=== PATIENT | male | born 1960 | race Caucasian/White ===

== ENCOUNTER 2019-05-29 20:39 | Observation (INO) | payer OTHER, SELFPAY ==
[2019-05-29 20:40] VITALS: BP 153/87; PULSE 134; RESP 18; TEMP 36.7; O2SAT 98; BMI 31.0
--- NOTE | 2019-05-29 20:58 | EKG12_ITS ---
Test Reason : CP Blood Pressure : / mmHG Vent. Rate : 113 BPM Atrial Rate : 113 BPM P-R Int : 134 ms QRS Dur : 144 ms QT Int : 346 ms P-R-T Axes : 038 087 -04 degrees QTc Int : 474 ms Sinus tachycardia Right bundle branch block Possible Inferior infarct , age undetermined Abnormal ECG Confirmed by SYDNEY THRASHER, PHIL ([id number]), business editor BI CAPELLAN ([id number]) on 05/31/2019 12:26:23 PM Referred By: Aurelio Odell Confirmed By:PHIL GRIMES MD
--- NOTE | 2019-05-29 21:00 | RAD_ITS ---
STUDY: X-RAY CHEST REASON FOR EXAM: Male, 59 years old. Chest pain TECHNIQUE: Frontal view COMPARISON: None. FINDINGS: The lungs are clear and expanded. There is no demonstrated pleural abnormality. Normal size heart. Normal mediastinum and mita. Normal visualized pulmonary arteries. Normal visualized aortic arch and descending thoracic aorta. Normal visualized thoracic spine. Normal visualized ribs, clavicles, and shoulders. There is no demonstrated abnormality of the visualized soft tissue structures of the upper abdomen. RAD/Chest 1 View (Portable) IMPRESSION: Normal x-ray examination of the chest. Electronically Signed: Tyler Otoole DO at 21:13 EDT Tel [phone], Service support ,
--- NOTE | 2019-05-29 21:01 | ED.RN ---
NO OLD EKGS IN MUSE
[2019-05-29 21:02] VITALS: O2SAT 99
[2019-05-29] MEDS: Aspirin 81 MG TAB.CHEW 324 MG PO (21:10)
[2019-05-29] MEDS: 0.9% Normal Saline 1,000 ML 1000 ML IV (21:11)
[2019-05-29] MEDS: Morphine 4 MG/ML Syringe IV (21:11)
[2019-05-29 21:34] LABS: Absolute Lymphocyte Count 1.36 X10^3/uL (0.83-4.51); Basophil# 0.03 X10^3/uL; Basophil% 0.4 % (0-1); Eosinophil# 0.09 X10^3/uL; Eosinophils% 1.2 % (0-5); Hematocrit 45.2 % (40-54); Hemoglobin 15.3 g/dL (13.0-16.5); Lymphocyte # 1.36 X10^3/ul (4.0); Lymphocyte % 18.6 % (19-41); Mean Corp Hgb Conc 33.8 g/dL (32-36); Mean Corpuscular Hgb 30.8 pg (27.0-32.0); Mean Corpuscular Volume 90.9 fL (80-94); Monocyte# 0.78 X10^3/uL; Monocyte% 10.7 % (0-10); NRBC Flagged by Analyzer 0 % (0-5); Neutrophil # 5.03 X10^3/uL (2.7-7.7); Neutrophil % 68.7 % (47-70); Platelet Count 223 K/mm3 (150-450); RBC Distribution Width SD 39.8 fl (35.1-43.9); Red Blood Count 4.97 M/mm3 (4.6-6.2); White Blood Count 7.3 K/mm3 (4.4-11.0)
[2019-05-29 21:41] LABS: D-Dimer Quantitative (DVT/PE) 0.35 FEU/ug/m (0.27-0.49)
[2019-05-29 21:44] LABS: Anion Gap 10 (5-15); BUN 15 mg/dL (7-18); BUN/Creat Ratio 9.3 RATIO (10-20); Calcium,Total 9.6 mg/dL (8.5-10.1); Chloride 107 mmol/L (98-107); Creatinine, Serum 1.62 mg/dL (0.70-1.30); EST Glomerular Filtration Rate 47 mL/min (>60); Est Glom Filt Rate - Afr Amer 56 mL/min (>60); Glucose 135 mg/dL (74-106); Potassium 3.7 mmol/L (3.5-5.1); Sodium Level 141 mmol/L (136-145)
--- NOTE | 2019-05-29 21:56 | ED.VISSUMM ---
- ER Visit Summary Date of Service: 05/29/19 Chief Complaint: Chest pain History of Present Illness: The patient is a 59 M with chest pain. He had pain yesterday in his retrosternal area and it radiates to the left chest. It resolved and then recurred again today around 7 PM. It is severe at times. It feels sharp. He never had this before. Associated with shortness of breath and headache. He has a history of hypertension and hyperlipidemia. Physical Examination: Afebrile and vital signs unremarkable except for heart rate of 134. He appears uncomfortable. Heart is tachycardic but regular. Lungs are clear. Abdomen soft. Extremities nontender with no edema. Skin is normal in color. Alert and oriented. Test Results: EKG showed sinus rhythm at a rate of 113. Right bundle branch block pattern. CBC normal. BMP unremarkable. Troponin normal. D-dimer normal. Chest x-ray normal. Emergency Department Course and Treatment: Patient was treated with aspirin and morphine. He was placed on the monitor. EKG showed right bundle with no acute ischemia or infarction pattern. Troponin was normal. Chest x-ray unremarkable. D-dimer negative. He is low risk, so I have no further suspicion for PE. Dissection very unlikely as well. Heart score is a 4. No history of cardiac testing. I am recommending observation. I spoke with the hospitalist. Treatment Plan: As above Disposition: PCU observation Impression: 1. Chest pain This note was generated with [employer] dictation software. It may contain incorrect words, spelling, and punctuation that were not noted in review of the chart prior to signing ED Disposition - Plan for ED Patient: Referrals: Markos Brito MD [Primary Care Provider] -
[2019-05-29 21:58] VITALS: BP 131/92; PULSE 86; RESP 20; O2SAT 99
--- NOTE | 2019-05-29 22:42 | PCM.HP.STD ---
Problem List (1) Chest pain Status: Acute History of Present Illness Date of Admission: 05/29/19 Chief Complaint: chest pain The patient is a 59 year old M with a significant history of former smoker; hypertension; hyperlipidemia who presented to emergency department with episodic lower substernal chest pain that radiates to his left chest. His symptoms started a day before presentation while at rest. 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 His pain is episodic lasting about 30 to 40 seconds. Associated with his symptoms is headache and shortness of breath. He denies any aggravating or ameliorating factors. At the emergency department he was given morphine that he thinks did not help the pain. He denies any nausea; vomiting or diaphoresis. Of note his father had a CABG. His father from heart attack when his father was 59 years old. Also his mother had quadruple bypass at around 72. Past Medical History Medical History: Medical History (Last Reviewed 05/29/19 @ 23:39 by Aurelio Odell MD) HLD (hyperlipidemia) E78.5 HTN (hypertension) I10 Allergies No Known Allergies Allergy (Verified 05/29/19 20:41) Home Medications: Ambulatory Orders Medication Instructions Recorded Simvastatin 20 mg PO QHS 04/23/16 Amlodipine [Norvasc] 10 mg PO DAILY 05/29/19 Surgical History: - - Shoulder surgery; neck surgery and ankle surgery Lives: Spouse/ Significant Other Smoking Status: Former smoker Alcohol: Occasional - *Family History Maternal History Items: Heart Disease - His mother had a quadruple bypass around age 72. Paternal History Items: Heart Disease - His father had CABG. His father from heart attack at age 59. Review of Systems Constitutional: Denies: Chills, Fever, Weight Change HEENT: Reports: Head Aches. Denies: Sinus Congestion, Sinus Drainage Cardiovascular: Reports: Chest Pain. Denies: Palpitations Respiratory: Reports: Shortness of Breath, Shortness of breath at rest, Shortness of breath upon exertion. Denies: Cough, Sputum production Gastrointestinal: Denies: Abdominal Pain, Nausea, Vomiting Genitourinary: Denies: Dysuria Musculoskeletal: Denies: Joint Pain, Joint Tenderness Skin: Denies: Rash, Wounds Neurological: Denies: Numbness, Tingling, Focal weakness Psychiatric: Denies: Anxiety, Depression, Homicidal Ideations, Suicidal Ideations Hematologic/ Lymphatic: Denies: Easy Bruising, Easy Bleeding VTE Information - Inpt Only VTE Present on Admission: No VTE Mechan Device Prophylaxis: None VTE Pharm Prophylaxis ordered?: No Reason prophylaxis not ordered:: Treatment Not Indicated - Patient was given therapeutic dose of Lovenox for probable unstable angina Patient Problems: Active and Suspected Problems (Last Updated 05/29/19 @ 23:30 by Aurelio Odell MD) Chest pain (Acute) - Physical Exam General: Alert, Oriented x3, Cooperative HEENT: Atraumatic, PERRLA, EOMI, Normocephalic Neck: Supple, No JVD, Negative Carotid Bruits, No Nuchal Rigidity, Trachea Midline Lungs: Clear to auscultation, Normal air movement, No rhonchi, No wheeze, No rales, Short of Breath Cardiovascular: Regular rate, No murmurs Abdomen: Bowel Sounds Present, Soft, Non Tender Extremities: No edema, Capillary Refill Less than 3 Seconds Skin: No rashes, No breakdown Musculoskeletal: No Tenderness to Palpation of Joints or Extremities Neurological: Cranial nerves II-XII grossly intact Psych/Mental Status: Normal Affect, Appropriate Vital Signs Temp Pulse Resp BP Pulse Ox 98.0 F 86 20 H 131/92 H 99 05/29/19 20:40 05/29/19 21:58 05/29/19 21:58 05/29/19 21:58 05/29/19 21:58 Oxygen Flow Rate (L/min) 2 Oxygen Delivery Method Room Air Weight: 95.254 kg Body Mass Index (BMI) 31.0 Laboratory Tests Past 24 Hrs 05/29/19 05/29/19 05/29/19 20:50 20:50 20:50 WBC 7.3 RBC 4.97 Hgb 15.3 Hct 45.2 MCV 90.9 MCH 30.8 MCHC 33.8 RDW Std Deviation 39.8 RDW Coeff of Eddie 12.0 Plt Count 223 MPV 10.0 Immature Gran % (Auto) 0.400 Neut % (Auto) 68.7 Lymph % (Auto) 18.6 L [place] % (Auto) 10.7 H Eos % (Auto) 1.2 Baso % (Auto) 0.4 Absolute Neuts (auto) 5.0 Absolute Lymphs (auto) 1.36 Nucleated RBC % 0 D-Dimer Quant (PE/DVT) 0.35 Sodium 141 Potassium 3.7 Chloride 107 Carbon Dioxide 24.0 Anion Gap 10 BUN 15 Creatinine 1.62 H Estim Creat Clear Calc 49.10 Est GFR (MDRD) Af Amer 56 L Est GFR (MDRD) Non-Af 47 L BUN/Creatinine Ratio 9.3 L Glucose 135 H Calcium 9.6 Troponin I < 0.015 Assessment/Plan All Active Problems (Last Updated 05/29/19 @ 23:30 by Aurelio Odell MD) Chest pain (Acute) The patient is a 59 year old M with a significant history of former smoker; hypertension; hyperlipidemia who presented to emergency department with episodic lower substernal chest pain that occurs at rest and that radiates to his left chest and with a strong family history of heart disease consistent with likely unstable angina. Probable unstable angina Heart Score 4 (moderately suspicious; age between 45-64; more reported today risk factors or history of atherosclerotic disease) Place on a monitored bed at PCU CXR independently reviewed confirms no acute cardiopulmonary process. EKG independently reviewed confirms sinus tachycardia with right bundle branch block. ASA 35 mg was given at the emergency department. ASA 81 mg p.o. daily ordered. Because of his associated headache will not order nitroglycerin at this time. Morphine as needed for pain We will give patient a one-time dose of therapeutic Lovenox. We will check lipid panel. Statin: Patient is on simvastatin 20 mg nightly at home that he already took. Will change to high intensity statin with Lipitor starting same day of admission. Serial cardiac enzymes Stat EKG as needed for chest pain Oxygen as needed as needed. His potassium was 3.7. Will replace with 30 mEq of potassium. Trend BMP. Check PT/INR. Because of high risk features we will consult cardiology. Hypertension On presentation his blood pressure was not within goal Amlodipine continued Trend blood pressure and adjust blood pressure medications Hyperlipidemia Simvastatin changed to high intensity statin of Lipitor as above. Lipid panel ordered. DVT prophylaxis Not indicated since therapeutic dose of Lovenox x1 has been ordered. Code Visit OBSV E&M: 83198 Initial observation care L3
[2019-05-29 22:46] VITALS: BP 145/71; PULSE 96; RESP 18; TEMP 36.6; O2SAT 100
--- NOTE | 2019-05-29 22:47 | EKG12_ITS ---
Test Reason : CP ADMIT Blood Pressure : / mmHG Vent. Rate : 082 BPM Atrial Rate : 082 BPM P-R Int : 148 ms QRS Dur : 150 ms QT Int : 386 ms P-R-T Axes : 031 041 004 degrees QTc Int : 450 ms Normal sinus rhythm Right bundle branch block Abnormal ECG No previous ECGs available Confirmed by ANNALISA THRASHER, TRANG ([id number]), script editor BI CAPELLAN ([id number]) on 06/06/2019 10:50:58 AM Referred By: Aurelio Odell Confirmed By:RICARDO FANG MD
[2019-05-29 22:52] VITALS: BMI 29.7
[2019-05-29 22:58] VITALS: BMI 29.7
[2019-05-29 23:19] VITALS: PULSE 81
[2019-05-29 23:35] VITALS: O2SAT 99
[2019-05-30] VITALS (10 sets, daily range): BP systolic 120–138; BP diastolic 75–87; PULSE 66–75; RESP 16–18; TEMP 36.4–36.6; O2SAT 95–100
[2019-05-30] MEDS: Atorvastatin Calcium 40 MG Tablet PO (00:08)
[2019-05-30] MEDS: Enoxaparin 100 MG/ML Syringe SC (00:09)
[2019-05-30] MEDS: Morphine 2 MG/ML Syringe IV (01:08)
[2019-05-30] MEDS: 0.9% NaCl Peripheral Flush Adult/Peds IV ×2 (01:09→01:10)
[2019-05-30 03:08] LABS: Prothrombin Time (Protime)PT. 12.8 SECONDS (11.7-14.9)
[2019-05-30 03:26] LABS: Anion Gap 8 (5-15); BUN 14 mg/dL (7-18); Calcium,Total 8.4 mg/dL (8.5-10.1); Chloride 111 mmol/L (98-107); Cholesterol 180 mg/dL (200); Creatinine, Serum 1.17 mg/dL (0.70-1.30); EST Glomerular Filtration Rate 68 mL/min (>60); Est Glom Filt Rate - Afr Amer 82 mL/min (>60); Estimated Creatinine Clearance 70.19 ml/min; Glucose 95 mg/dL (74-106); High Density Lipoprotein 47 mg/dL; Sodium Level 145 mmol/L (136-145); Triglycerides 340 mg/dL; Very Low Density Lipoprotein 68 mg/dL (5-40)
[2019-05-30] MEDS: Acetaminophen 325 MG Tablet 650 MG PO (04:22)
[2019-05-30] MEDS: Clopidogrel Bisulfate 300 MG Tablet PO (07:15)
[2019-05-30] MEDS: Aspirin E.C. 81 MG Tablet PO (07:23)
--- NOTE | 2019-05-30 07:33 | CON.PCM_ITS ---
Reason for Consult Date of Consultation: 05/30/19 Reason for Consultation: Chest pain History of Present Illness: The patient is a 59 year old M with a previous cardiac history consisting of hypertension and hyperlipidemia who presents to the hospital with a 2-day onset of chest discomfort. He says that this has been waxing and waning initially started as sharp and then was a burning sensation in his midepigastrium. He did take some antacid but there was no improvement in the discomfort. There was no radiation no nausea diaphoresis or dizziness. He was concerned about the above because his father had a myocardial infarction at age 59. He says that he remains fairly active and sometimes gets the discomfort. He was seen in the emergency room and at that time was not noted to have any further chest discomfort. He denies any dizziness or diaphoresis. [] Past Medical History Allergies/Adverse Reactions: Allergies No Known Allergies Allergy (Verified 05/29/19 20:41) Home Medications: Ambulatory Orders Medication Instructions Recorded Simvastatin 20 mg PO QHS 04/23/16 Amlodipine [Norvasc] 10 mg PO DAILY 05/29/19 Surgical History: - - Shoulder surgery; neck surgery and ankle surgery - *Family History Maternal History Items: Heart Disease - His mother had a quadruple bypass around age 72. Paternal History Items: Heart Disease - His father had CABG. His father from heart attack at age 59. Lives: Spouse/ Significant Other Smoking Status: Former smoker Alcohol: Occasional Drugs: None Review of Systems - Review of Systems General: Denies: Fever, Night Sweats, Fatigue HEENT: Denies: Vision Change Cardiovascular: Reports: Chest Discomfort. Denies: Shortness of Breath, Orthopnea, PND, Peripheral Edema, Palpitations, Lightheadedness, Dizziness, Near Syncope, Syncope Respiratory: Denies: Cough, Sputum Production, Hemoptysis Gastrointestinal: Denies: Hematemesis, Hematochezia, Melena Genitourinary: Denies: Dysuria, Hematuria Skin: Denies: Rash Psychiatric: Denies: Anxiety Endocrine: Denies: Heat Intolerance Hematologic/ Lymphatic: Denies: Lymph Node Enlargement Subjectve: Patient seen and evaluated. Objective: Vital Signs Temp Pulse Resp BP Pulse Ox 97.6 F L 72 18 138/75 H 100 05/30/19 04:25 05/30/19 07:17 05/30/19 04:25 05/30/19 04:25 05/30/19 04:25 Oxygen Flow Rate (L/min) 2 Oxygen Delivery Method Room Air Weight: 206 lb 12.697 oz Body Mass Index (BMI) 29.7 Intake and Output for Last 24 Hours 05/28/19 05/29/19 05/30/19 23:59 23:59 23:59 Intake Total 1240 / 1240 Balance 1240 / 1240 General: Awake, Alert, Oriented x 3 HEENT: PERRL, EOMI, Sclera Non Icteric Neck: Supple, Good ROM, No Lymph Node Enlargement Lungs: Clear to auscultation Cardiovascular: Regular Rhythm, Normal S1, Normal S2, No Murmurs, No Rubs, No Gallops Vascular: No Carotid Bruits, Normal Femoral Pulses, Normal Radial Pulses, Normal Dorsalis Pedal Pulse, Normal Posterior Tibial Pulses Abdomen: Bowel Sounds Present, Soft, Non Tender, No HSM, No Organomegaly Extremities: No Cyanosis, No Clubbing, No edema Musculoskeletal: No Erythema Skin: No Rashes Lymphatic: No Lymph Node Enlargement Neurological: No Focal Motor or Sensory Deficit Psych/Mental Status: Appropriate 05/29/19 20:50: WBC 7.3, RBC 4.97, Hgb 15.3, Hct 45.2, MCV 90.9, MCH 30.8, MCHC 33.8, Plt Count 223, MPV 10.0, Immature Gran % (Auto) 0.400, Neut % (Auto) 68.7, Lymph % (Auto) 18.6 L, [place] % (Auto) 10.7 H, Eos % (Auto) 1.2, Baso % (Auto) 0.4, Absolute Neuts (auto) 5.0, Nucleated RBC % 0 05/29/19 20:50: D-Dimer Quant (PE/DVT) 0.35 05/29/19 20:50: Sodium 141, Potassium 3.7, Chloride 107, Carbon Dioxide 24.0, Anion Gap 10, BUN 15, Creatinine 1.62 H, Est GFR (MDRD) Af Amer 56 L, Est GFR (MDRD) Non-Af 47 L, BUN/Creatinine Ratio 9.3 L, Glucose 135 H, Calcium 9.6, Troponin I < 0.015 05/29/19 23:55: Troponin I < 0.015 05/30/19 02:35: Sodium 145, Potassium 4.0, Chloride 111 H, Carbon Dioxide 26.0, Anion Gap 8, BUN 14, Creatinine 1.17, Est GFR (MDRD) Af Amer 82, Est GFR (MDRD) Non-Af 68, BUN/Creatinine Ratio 12.0, Glucose 95, Calcium 8.4 L, Triglycerides 340 H, Cholesterol 180, LDL Cholesterol 65, VLDL Cholesterol 68 H, HDL Cholesterol 47 05/30/19 02:35: PT 12.8, INR 1.0 05/30/19 02:35: Troponin I < 0.015 Rhythm: EKG: Normal sinus rhythm no acute changes ECHO: Stress Test: Cardiac Cath: PCI: CT Surgery: Holter monitor: EPS: PPM: CXR: Chest CT Scan: Assessment/Plan 1. Chest pain. * Patient presents with chest discomfort with some features which are slightly atypical. However the patient appears to be rather concerned about the discomfort and I did discuss with him about proceeding with stress testing but he is hesitant to go with the above. He would prefer an invasive approach to know what is going on. Based on the above I would recommend that we proceed with a cardiac catheterization. And depending on the findings further recommendations will be made. The risk benefits alternatives have been explained to him he understands and agrees to proceed. * 2. Hypertension * His blood pressure appears to be under good control at this particular time and I would not make any other changes. * Continue with amlodipine. * 3. Hyperlipidemia * Patient appears to have a rather favorable lipid status. We will continue with no changes. * * Thank you for allowing me to participate in the care of your patient. Please don't hesitate to call if any issues arise * * Addendum: Cardiac catheterization performed this morning demonstrated essentially normal coronary arteries. Would recommend starting patient on antacid and discharged for outpatient follow-up.
--- NOTE | 2019-05-30 07:48 | PN_ITS ---
Patient Problems: Active and Suspected Problems (Last Reviewed 05/29/19 @ 23:39 by Aurelio Odell MD) Chest pain (Acute) Vitals/I&O's: Vital Signs Temp Pulse Resp BP Pulse Ox 97.6 F L 72 18 138/75 H 100 05/30/19 04:25 05/30/19 07:17 05/30/19 04:25 05/30/19 04:25 05/30/19 04:25 Oxygen Flow Rate (L/min) 2 Oxygen Delivery Method Room Air Weight: 93.8 kg Body Mass Index (BMI) 29.7 Intake and Output for Last 24 Hours 05/28/19 05/29/19 05/30/19 23:59 23:59 23:59 Intake Total 1240 / 1240 Balance 1240 / 1240 Laboratory Results 05/29/19 20:50: WBC 7.3, RBC 4.97, Hgb 15.3, Hct 45.2, MCV 90.9, MCH 30.8, MCHC 33.8, RDW Std Deviation 39.8, RDW Coeff of Eddie 12.0, Plt Count 223, MPV 10.0, Immature Gran % (Auto) 0.400, Neut % (Auto) 68.7, Lymph % (Auto) 18.6 L, [place] % (Auto) 10.7 H, Eos % (Auto) 1.2, Baso % (Auto) 0.4, Absolute Neuts (auto) 5.0, Absolute Lymphs (auto) 1.36, Nucleated RBC % 0 05/29/19 20:50: D-Dimer Quant (PE/DVT) 0.35 05/29/19 20:50: Sodium 141, Potassium 3.7, Chloride 107, Carbon Dioxide 24.0, Anion Gap 10, BUN 15, Creatinine 1.62 H, Estim Creat Clear Calc 49.10, Est GFR (MDRD) Af Amer 56 L, Est GFR (MDRD) Non-Af 47 L, BUN/Creatinine Ratio 9.3 L, Glucose 135 H, Calcium 9.6, Troponin I < 0.015 05/29/19 23:55: Troponin I < 0.015 05/30/19 02:35: Sodium 145, Potassium 4.0, Chloride 111 H, Carbon Dioxide 26.0, Anion Gap 8, BUN 14, Creatinine 1.17, Estim Creat Clear Calc 70.19, Est GFR (MDRD) Af Amer 82, Est GFR (MDRD) Non-Af 68, BUN/Creatinine Ratio 12.0, Glucose 95, Calcium 8.4 L, Triglycerides 340 H, Cholesterol 180, LDL Cholesterol 65, VLDL Cholesterol 68 H, HDL Cholesterol 47 05/30/19 02:35: PT 12.8, INR 1.0 05/30/19 02:35: Troponin I < 0.015 Current Medications Acetaminophen (Tylenol) 650 mg PO Q6H PRN PRN PRN Reason: Mild pain 1-3/Temp > 100.7 F Last Admin: 05/30/19 04:22 Dose: 650 mg Documented by: Amlodipine Besylate (Norvasc) 10 mg PO DAILY [facility] Aspirin (Ecotrin) 81 mg PO DAILY@0800 [facility] Last Admin: 05/30/19 07:23 Dose: 81 mg Documented by: Atorvastatin Calcium (Lipitor) 40 mg PO QHS [facility] Last Admin: 05/30/19 00:08 Dose: 40 mg Documented by: Dextrose (D50w Syringe) 0 gm IV X1 PRN; Protocol PRN Reason: Hypoglycemia Glucagon () 1 mg IM .X1 PRN PRN Reason: Hypoglycemia Sodium Chloride () 1,000 mls @ 0 mls/hr IV .Q0M [facility] Melatonin (Melatonin) 3 mg PO QHS PRN PRN PRN Reason: INSOMNIA Morphine Sulfate () 2 mg IV Q3H PRN PRN PRN Reason: Severe Pain (7-10/10) Last Admin: 05/30/19 01:08 Dose: 2 mg Documented by: Ondansetron HCl (Zofran) 4 mg IV Q8H PRN PRN PRN Reason: NAUSEA/VOMITING Sodium Chloride () 5 - 15 ml IV UD PRN PRN Reason: SALINE FLUSH Last Admin: 05/30/19 01:10 Dose: 10 ml Documented by: Medical Necessity - Tobacco Use Smoking Status: Former smoker Assessment/Plan All Active Problems (Last Reviewed 05/29/19 @ 23:39 by Aurelio Odell MD) Chest pain (Acute)
--- NOTE | 2019-05-30 08:01 | CASEMGMT ---
According to the [employer] website, the following are in-network tertiary facilities: [facility], [facility], [facility], [facility], [facility], [place], [facility], and . Dulce RIVERA CM
--- NOTE | 2019-05-30 08:52 | CL.D_ITS ---
Patient Name: AVILA HOLMAN Study Date: 05/30/2019 Performing: Prince Hernandez MD Ht: 70 inches 178 cm : 1960 Wt: 207.5 lbs 94 kg Age: 59 Gender: male BSA: 2.12 PROCEDURE(S) PERFORMED [id number]/COR/LV CLINICAL PROFILE AND INDICATIONS Indications: Suspected CAD Heart Failure: None Stress/Imaging Stress/Image Study Performed: No CAD Presentations: Symptom unlikely to be ischemic. CONCLUSIONS Normal coronary arteries Normal LV size, wall motion,and systolic function RECOMMENDATIONS Medical therapy DESCRIPTION OF PROCEDURE The patient arrived to the procedure lab. The risks and benefits of the procedure as well as a full d escription of our services here and current unavailability of surgical backup were fully explained to the patient and/or their significant other prior to the catheterization. The Timeout was completed, verifying the correct patient and procedure. The patient's procedural site was prepped and draped in the usual fashion. Local anesthetic was given subcutaneously to right groin region with Lidocaine 2%. Using a modified Seldinger technique, arterial access was obtained via the right femoral artery, a 5 Fr sheath was inserted. Left Coronary Artery selective angiography was performed in multiple views u sing a 5 Fr. JL4 catheter. Right Coronary Artery selective angiography was then performed in multiple views using a 5 Fr. 3DRC (Davian) catheter. Left Ventriculography was performed in EDGAR projection using a 5 Fr. Pigtail catheter. LV to AO pullback pressures were then recorded.The arterial sheath was pulled and a Mynx closure device was deployed for hemostasis CORONARY ANGIOGRAPHY DOMINANCE: Left Dominant LEFT HEART ASSESSMENT Left Ventricular Ejection Fraction: by LV Gram 60 % Normal LV wall motion Normal Left Ventricular systolic function Normal Left Ventricular systolic function LEFT MAIN: Angiographically normal LEFT ANTERIOR DESCENDING ARTERY: Angiographically normal CIRCUMFLEX ARTERY: Angiographically normal RIGHT CORONARY ARTERY: Angiographically normal COMPLICATIONS No Complications PROCEDURE MEDICATIONS Versed 1 mg IV Oxygen: 2 L/min via nasal cannula SUMMARY OF HEMODYNAMIC DATA Time AIR REST ECG 07:48:42 AO 146/87 (111) SA 08:02:40 LV 145/-2, 22 08:09:57 LV 145/-5, 17 08:10:04 LV 147/-1, 20 08:10:44 LVp 144/0, 19 08:10:49 AOp 152/79 (109) 08:10:54 AO 170/70 (111) 08:11:29 Signed By Prince Hernandez MD On 05/30/2019 08:51:55 Prince Hernandez MD
[2019-05-30] MEDS: amLODIPine 10 MG Tablet PO (10:09)
--- NOTE | 2019-05-30 11:06 | PCM.DC ---
- Discharge Diagnoses Current Active Problems: Current Active and Chronic Problems (Last Reviewed 05/29/19 @ 23:39 by Aurelio Odell MD) Chest pain (Acute) You will use the following diet at home:: Other - Low fat/low cholesterol Discharge Activity: Return to Normal Activity, - - Follow post op cath instructions Call your doctor if you observe: Shortness of breath, Dizziness, Fainting spells, Chest pain Allergies/Adverse Reactions: Allergies No Known Allergies Allergy (Verified 05/29/19 20:41) Medications to take at Discharge Simvastatin 20 mg PO QHS 04/23/16 Amlodipine [Norvasc] 10 mg PO DAILY 05/29/19 Pantoprazole Sodium [Protonix] 40 mg PO DAILY #30 tab 05/30/19 The following prescriptions were given: Pantoprazole Sodium [Protonix] 40 mg PO DAILY #30 tab Transmission Status: Pending to [facility]/pharmacy #[id number] Primary Care Physician: Markos Brito MD [Primary Care Provider] - Please follow up with your Primary Care Physician in: 1 Week Test Results: Test results from this visit will be discussed in further detail at your follow-up appointment, if applicable. Proposed Discharge Date: 05/30/19
--- NOTE | 2019-05-30 11:10 | PCM.DC.SUM ---
<Roxana Johns - Last Filed: 05/30/19 11:15> Discharge Date and Diagnosis Date of Admission: 05/29/19 Date of Discharge: 05/30/19 - Primary Discharge Diagnosis Active and Suspected Problems (Last Reviewed 05/29/19 @ 23:39 by Aurelio Odell MD) 1. Non-cardiac chest pain, ACS ruled out 2. Hypertension 3. Hyperlipidemia 4. GERD Hospital Course and Treatment Imaging Results: Diagnostic Data Chest X-Ray 05/29/19 21:00 IMPRESSION: Normal x-ray examination of the chest. Electronically Signed: Tyler Otoole DO at 21:13 EDT Tel [phone], Service support , Dr. Hernandez- Cardiology Operations: None Procedures: Cardiac catheterization Summary of Care Provided: The patient is a 59 year old M admitted 05/29/2019 due to chest pain. 1. Non-cardiac chest pain, ACS ruled out-troponin negative. EKG without ST-T changes. Cardiology consulted. Patient underwent cardiac catheterization which showed normal coronary arteries. EF 60%. Suspect symptoms may be related to GERD. Placed on Protonix 40 mg daily. Follow-up with PCP in 1 week. 2. Hypertension-stable, continue home amlodipine regimen. 3. Hyperlipidemia-continue home statin regimen. 4. GERD-previously on Prilosec 20 mg daily. Switch to trial of Protonix 40 mg daily. Follow-up with PCP in 1 week. Patient seen and examined prior to discharge. Physical assessment as noted below. Patient is stable for discharge with follow up recommendations as noted above. This patient was seen by MAYI Parrish under the supervision of Dr. Villa. - Physical Exam General: Alert, Oriented x3, Cooperative HEENT: Atraumatic, PERRLA, EOMI, Normocephalic Neck: Supple, No JVD, Negative Carotid Bruits Lungs: Clear to auscultation, Normal air movement Cardiovascular: Regular rate, Regular Rhythm, Normal S1, Normal S2, No murmurs Abdomen: Bowel Sounds Present, Soft, Non Tender, Non-Distended Extremities: No clubbing, No cyanosis, No edema, Capillary Refill Less than 3 Seconds Skin: No rashes, No breakdown Musculoskeletal: No Tenderness to Palpation of Joints or Extremities Neurological: Cranial nerves II-XII grossly intact, Neuro grossly intact Psych/Mental Status: Normal Affect, Appropriate Vital Signs Temp Pulse Resp BP Pulse Ox 97.8 F 70 16 130/82 H 95 05/30/19 09:00 05/30/19 10:00 05/30/19 10:00 05/30/19 10:00 05/30/19 10:00 Oxygen Flow Rate (L/min) 2 Oxygen Delivery Method Room Air Weight: 206 lb 12.697 oz Body Mass Index (BMI) 29.7 Intake and Output for Last 24 Hours 05/28/19 05/29/19 05/30/19 23:59 23:59 23:59 Intake Total 1240 / 1240 Balance 1240 / 1240 Laboratory Tests Past 24 Hrs 05/29/19 05/29/19 05/29/19 20:50 20:50 20:50 WBC 7.3 RBC 4.97 Hgb 15.3 Hct 45.2 MCV 90.9 MCH 30.8 MCHC 33.8 RDW Std Deviation 39.8 RDW Coeff of Eddie 12.0 Plt Count 223 MPV 10.0 Immature Gran % (Auto) 0.400 Neut % (Auto) 68.7 Lymph % (Auto) 18.6 L Pershing % (Auto) 10.7 H Eos % (Auto) 1.2 Baso % (Auto) 0.4 Absolute Neuts (auto) 5.0 Absolute Lymphs (auto) 1.36 Nucleated RBC % 0 PT INR D-Dimer Quant (PE/DVT) 0.35 Sodium 141 Potassium 3.7 Chloride 107 Carbon Dioxide 24.0 Anion Gap 10 BUN 15 Creatinine 1.62 H Estim Creat Clear Calc 49.10 Est GFR (MDRD) Af Amer 56 L Est GFR (MDRD) Non-Af 47 L BUN/Creatinine Ratio 9.3 L Glucose 135 H Calcium 9.6 Troponin I < 0.015 Triglycerides Cholesterol LDL Cholesterol VLDL Cholesterol HDL Cholesterol 05/29/19 05/30/19 05/30/19 23:55 02:35 02:35 WBC RBC Hgb Hct MCV MCH MCHC RDW Std Deviation RDW Coeff of Eddie Plt Count MPV Immature Gran % (Auto) Neut % (Auto) Lymph % (Auto) Pershing % (Auto) Eos % (Auto) Baso % (Auto) Absolute Neuts (auto) Absolute Lymphs (auto) Nucleated RBC % PT 12.8 INR 1.0 D-Dimer Quant (PE/DVT) Sodium 145 Potassium 4.0 Chloride 111 H Carbon Dioxide 26.0 Anion Gap 8 BUN 14 Creatinine 1.17 Estim Creat Clear Calc 70.19 Est GFR (MDRD) Af Amer 82 Est GFR (MDRD) Non-Af 68 BUN/Creatinine Ratio 12.0 Glucose 95 Calcium 8.4 L Troponin I < 0.015 Triglycerides 340 H Cholesterol 180 LDL Cholesterol 65 VLDL Cholesterol 68 H HDL Cholesterol 47 05/30/19 02:35 WBC RBC Hgb Hct MCV MCH MCHC RDW Std Deviation RDW Coeff of Eddie Plt Count MPV Immature Gran % (Auto) Neut % (Auto) Lymph % (Auto) Pershing % (Auto) Eos % (Auto) Baso % (Auto) Absolute Neuts (auto) Absolute Lymphs (auto) Nucleated RBC % PT INR D-Dimer Quant (PE/DVT) Sodium Potassium Chloride Carbon Dioxide Anion Gap BUN Creatinine Estim Creat Clear Calc Est GFR (MDRD) Af Amer Est GFR (MDRD) Non-Af BUN/Creatinine Ratio Glucose Calcium Troponin I < 0.015 Triglycerides Cholesterol LDL Cholesterol VLDL Cholesterol HDL Cholesterol Discharge Diet: Low fat/ Low Cholesterol Discharge Activity: Return to Normal Activity, - - Follow post op cath instructions Call your doctor if you observe: Shortness of breath, Dizziness, Fainting spells, Chest pain Home Medications: Medications to take at Discharge Simvastatin 20 mg PO QHS 04/23/16 Amlodipine [Norvasc] 10 mg PO DAILY 05/29/19 Pantoprazole Sodium [Protonix] 40 mg PO DAILY #30 tab 05/30/19 Following Prescrptions Were Given to Patient: Pantoprazole Sodium [Protonix] 40 mg PO DAILY #30 tab Transmission Status: Received by [facility]/pharmacy #[id number] Primary Care Physician: Markos Brito MD [Primary Care Provider] - Please follow up with your Primary Care Physician in: 1 Week Disposition: Home Minutes spent on discharge:: 35 Patient Condition:: Stable Medical Necessity - Tobacco Use Smoking Status: Former smoker Meaningful Use Info Meaningful Use Diagnoses (Choose all that apply): None applicable <Anastacia Villa - Last Filed: 05/30/19 16:30> Discharge Date and Diagnosis - Primary Discharge Diagnosis Acute kidney injury on CKD stage 3, present on admission Hospital Course and Treatment Summary of Care Provided: This patient was seen in conjunction with Roxana Johns NP. I have independently interviewed and examined the patient and reviewed pertinent historical, laboratory, and other data. Please refer to her note for patient's presentation, findings, and recommendations. 59-year-old male with past medical history of hypertension, hyperlipidemia, GERD was admitted with chest pain of one day duration that located at rest and also with exertion. Patient admitting EKG showed no acute ST-T changes. His troponins were negative. Patient was seen by cardiology, underwent cardiac cath that showed clean coronaries. Patient's symptoms were suspected to be due to acid reflux. Was on omeprazole 20 mg daily but was not taking it. He was advised to take pantoprazole 40 mg twice daily for 1 month and then go back to taking it once daily. He will follow-up with his primary care doctor within 1 to 2 weeks. The day of discharge, patient was seen and examined. Denied any new events. Vitals were reviewed -stable Physical Exam: Gen:Comfortable, not pale, not jaundiced, alert oriented x3 CVS:HS I +II, regular, no murmurs RESP:CTA GI: BS present and normal, nontender, no palpable organs EXT:No edema Labs reviewed: ASSESSMENT: 1. Noncardiac chest pain, ACS ruled out 2. LINNETTE on CKD stage III, present on admission 3. Hypertension 4. Hyperlipidemia 5. GERD - Physical Exam Vital Signs Temp Pulse Resp BP Pulse Ox 97.8 F 70 16 134/80 H 96 05/30/19 09:00 05/30/19 11:30 05/30/19 11:30 05/30/19 11:30 05/30/19 11:30 Oxygen Flow Rate (L/min) 2 Oxygen Delivery Method Room Air Weight: 93.8 kg Body Mass Index (BMI) 29.7 Intake and Output for Last 24 Hours 05/28/19 05/29/19 05/30/19 23:59 23:59 23:59 Intake Total 1240 / 1240 Balance 1240 / 1240 Laboratory Tests Past 24 Hrs 05/29/19 05/29/19 05/29/19 20:50 20:50 20:50 WBC 7.3 RBC 4.97 Hgb 15.3 Hct 45.2 MCV 90.9 MCH 30.8 MCHC 33.8 RDW Std Deviation 39.8 RDW Coeff of Eddie 12.0 Plt Count 223 MPV 10.0 Immature Gran % (Auto) 0.400 Neut % (Auto) 68.7 Lymph % (Auto) 18.6 L Pershing % (Auto) 10.7 H Eos % (Auto) 1.2 Baso % (Auto) 0.4 Absolute Neuts (auto) 5.0 Absolute Lymphs (auto) 1.36 Nucleated RBC % 0 PT INR D-Dimer Quant (PE/DVT) 0.35 Sodium 141 Potassium 3.7 Chloride 107 Carbon Dioxide 24.0 Anion Gap 10 BUN 15 Creatinine 1.62 H Estim Creat Clear Calc 49.10 Est GFR (MDRD) Af Amer 56 L Est GFR (MDRD) Non-Af 47 L BUN/Creatinine Ratio 9.3 L Glucose 135 H Calcium 9.6 Troponin I < 0.015 Triglycerides Cholesterol LDL Cholesterol VLDL Cholesterol HDL Cholesterol 05/29/19 05/30/19 05/30/19 23:55 02:35 02:35 WBC RBC Hgb Hct MCV MCH MCHC RDW Std Deviation RDW Coeff of Eddie Plt Count MPV Immature Gran % (Auto) Neut % (Auto) Lymph % (Auto) Pershing % (Auto) Eos % (Auto) Baso % (Auto) Absolute Neuts (auto) Absolute Lymphs (auto) Nucleated RBC % PT 12.8 INR 1.0 D-Dimer Quant (PE/DVT) Sodium 145 Potassium 4.0 Chloride 111 H Carbon Dioxide 26.0 Anion Gap 8 BUN 14 Creatinine 1.17 Estim Creat Clear Calc 70.19 Est GFR (MDRD) Af Amer 82 Est GFR (MDRD) Non-Af 68 BUN/Creatinine Ratio 12.0 Glucose 95 Calcium 8.4 L Troponin I < 0.015 Triglycerides 340 H Cholesterol 180 LDL Cholesterol 65 VLDL Cholesterol 68 H HDL Cholesterol 47 05/30/19 02:35 WBC RBC Hgb Hct MCV MCH MCHC RDW Std Deviation RDW Coeff of Eddie Plt Count MPV Immature Gran % (Auto) Neut % (Auto) Lymph % (Auto) Pershing % (Auto) Eos % (Auto) Baso % (Auto) Absolute Neuts (auto) Absolute Lymphs (auto) Nucleated RBC % PT INR D-Dimer Quant (PE/DVT) Sodium Potassium Chloride Carbon Dioxide Anion Gap BUN Creatinine Estim Creat Clear Calc Est GFR (MDRD) Af Amer Est GFR (MDRD) Non-Af BUN/Creatinine Ratio Glucose Calcium Troponin I < 0.015 Triglycerides Cholesterol LDL Cholesterol VLDL Cholesterol HDL Cholesterol Code Visit Inpatient E&M: [id number] Disch Hosp
== END 2019-05-30 08:25 | disposition home or self-care (01) ==
LOC: ED 22:12 → PCU 22:47
PROVIDERS: Admitting Provider Hospitalist; Emergency Provider Emergency Medicine; Family Provider Family Medicine; PCP Family Medicine; Referring Provider Hospitalist; Visit Provider Internal Medicine
DX: R07.89 Other chest pain (principal); R06.02 Shortness of breath; E78.5 Hyperlipidemia, unspecified; R51 Headache; R00.0 Tachycardia, unspecified; I12.9 Hypertensive chronic kidney disease with stage 1 through stage 4 chronic kidney disease, or unspecified chronic kidney disease; N18.3 Chronic kidney disease, stage 3 (moderate); I45.10 Unspecified right bundle-branch block; K21.9 Gastro-esophageal reflux disease without esophagitis; Z87.891 Personal history of nicotine dependence; Z79.899 Other long term (current) drug therapy; Z95.1 Presence of aortocoronary bypass graft; Z82.49 Family history of ischemic heart disease and other diseases of the circulatory system
CPT/HCPCS: 36415; 71045; 80048; 80061; 84484; 85025; 85379; 85610; 93005; 93458; 96372; 96374; 96376; 99152; 99218; 99285; C1760; J7030; J7040; A4216; C1769; G0378; Q9967

== ENCOUNTER 2020-12-04 23:13 | Emergency (ER) | payer OTHER, SELFPAY ==
[2020-12-04 23:14] VITALS: BP 149/89; PULSE 112; RESP 18; TEMP 36.8; O2SAT 100; BMI 29.9
--- NOTE | 2020-12-05 00:05 | ED.DCSUM_ITS ---
History of Present Illness Chief Complaint: Male Pain/Injury Detail of Chief Complaint: Pain and mass on the left side Informant: Patient Onset: Hours - Onset 2030 Context: Sudden Onset Timing: Continuous Quality: Pain Location: Left inguinal/scrotal Current Severity: Moderate Maximum Severity: Severe Worsened by: Movement Relieved by: Nothing Associated Symptoms: No associated nausea or vomiting. No abdominal distention. Narrative: Patient is a 60-year-old male with history of hypertension, hypercholesterolemia and GERD who presents with abrupt onset of left sided inguinal pain with mass noted left side of scrotum. States has had some problems recently. He is never had pain like this. He states he felt a pop. He denies dysuria, frequency, urgency or hematuria. He denies nausea, vomiting or constipation. He denies fever or chills. He has no other complaints. Prior similar symptoms: No Recent Illness/Hospitalization: No - Past Medical History (1) History of gastroesophageal reflux (GERD) Status: Acute (2) Essential (primary) hypertension Status: Chronic (3) HLD (hyperlipidemia) Status: Chronic Past Medical History - Allergies and Home Meds Allergies/Adverse Reactions: Allergies No Known Allergies Allergy (Verified 05/29/19 20:41) Primary Care Physician: Markos Brito MD [Primary Care Provider] - Prior records reviewed: Yes Surgical History: - - Shoulder surgery; neck surgery and ankle surgery Lives: Spouse/ Significant Other Smoking Status: Former smoker Alcohol: Rare Drugs: None - Family History Maternal Family History: Reports: Heart Disease - His mother had a quadruple bypass around age 72. Paternal Family History: Reports: Heart Disease - His father had CABG. His father from heart attack at age 59. Review of Systems General: Denies: Chills, Fever, Subjective, Sweats Cardiovascular: Denies: Chest pain, Palpitations Respiratory: Denies: Dyspnea, Cough, Dyspnea on exertion Gastrointestinal: Denies: Abdominal pain, Nausea, Vomiting, Diarrhea, Constipation Genitourinary: Reports: - - Pain left side of scrotum. Denies: Dysuria, Hematuria, Frequency Musculoskeletal: Denies: Myalgias, Arthralgias, Neck pain, Back pain, Swelling, Extremity Pain, -, - Skin: Denies: Rash, Wounds Neurological: Denies: Headache, Weakness, Numbness Endocrine: Denies: Polyuria, Polydipsia Hematologic: Denies: Easy bruising, Easy bleeding Physical Exam Vital Signs/Narrative: Vital Signs Temp Pulse Resp BP Pulse Ox 12/04/20 23:14 98.2 F 112 H 18 149/89 H 100 Inital Vital Signs reviewed: Yes General: Well nourished, Well developed, No Acute Distress Head: Normocephalic, Atraumatic Eyes: Perrl, EOMI. Negative for: Pale conjunctiva, Scleral icterus ENT: Moist mucous membranes, No rhinorrhea Neck: Supple, Nontender, No lymphadenopathy, No JVD Cardiovascular: Regular rate, Regular rhythm, No murmurs, Normal S1, Normal S2 Respiratory: No distress, CTA bilaterally, Chest nontender Abdomen: Soft, Nontender, Nondistended, Normal bowel sounds, No masses Rectal: Deferred : - - There is a palpable mass consistent with a hernia left side of scrotum. Patient is in obvious discomfort. Testes are descended bilaterally with no testicular tenderness. Testicular lie is normal. Back: Nontender, Normal Inspection Extremities: Nontender, No edema Skin: Normal color, No rash Neurological: Alert, Oriented x3, Cranial nerves II-XII grossly intact, Normal S trength, Normal Sensation Psychological: Normal affect, Normal Mood Diagnostic/Tx/Re-eval - Medical Decision Making Has a left inguinal hernia. Patient was placed in supine position. The hernia was reduced with minimal effort. His pain resolved once the hernia was reduced completely. Case was discussed with surgeon on-call Dr. Olaf cedeno. Patient's been instructed to call the office in the morning to schedule outpatient surgery to repair the hernia. Patient does not have findings or symptoms consistent with obstruction. ED Disposition - Plan for ED Patient: Disposition: Home or Assisted Living Diagnosis: Inguinal hernia, left Prescriptions: Hydrocodone Bitart/Apap 5-325 [[place] 5MG-325MG] 1 tablet PO Q6H PRN PRN 3 Days #10 tab PRN Reason: Pain Prescription Printed Referrals: Markos Brito MD [Primary Care Provider] - Arlene Lal MD [STAFF PHYSICIAN] - As soon as possible Additional Instructions: If you develop severe pain, return to the emergency department. If you develop pain with nausea and vomiting, return to the emergency department
== END 2020-12-05 00:59 | disposition home or self-care (01) ==
PROVIDERS: Emergency Provider Emergency Medicine; PCP Family Medicine
DX: K40.90 Unilateral inguinal hernia, without obstruction or gangrene, not specified as recurrent (principal); I10 Essential (primary) hypertension; K21.9 Gastro-esophageal reflux disease without esophagitis; E78.5 Hyperlipidemia, unspecified; E78.00 Pure hypercholesterolemia, unspecified; Z79.899 Other long term (current) drug therapy; Z87.891 Personal history of nicotine dependence
CPT/HCPCS: 99282; A4216

== ENCOUNTER → 2020-12-11 13:20 | Outpatient (CLI) | payer OTHER, SELFPAY ==
[2020-12-06 13:22] VITALS: BMI 30.1
--- NOTE | 2020-12-11 13:21 | US_ITS ---
STUDY: SCROTUM ULTRASOUND REASON FOR EXAM: Male, 60 years old. Testicular nodule TECHNIQUE: Ultrasound evaluation of the scrotum was performed with color Doppler and static rogers-scale imaging. COMPARISON: None. FINDINGS: RIGHT TESTICLE INTRATESTICULAR: There is a normal size of the right testicle. The right testicle measures 4.6 x 2.2 cm. There is a homogenous echotexture. There is normal arterial and normal venous vascularity. There is no demonstrated right testicular mass or cyst. EXTRATESTICULAR: The epididymis is normal in size. The epididymis head measures 1.4 x 1.0 x 1.0 cm. There is normal vascularity of the epididymis. There is a 9 mm epididymal cyst. There is a small hydrocele. There is no demonstrated varicocele. There is no demonstrated extratesticular mass or cyst. LEFT TESTICLE INTRATESTICULAR: There is a normal size of the left testicle. The left testicle measures 4.8 x 3.3 x 2.0 cm. There is a homogenous echotexture. There is normal arterial and normal venous vascularity. There is no demonstrated left testicular mass or cyst. EXTRATESTICULAR: The epididymis is normal in size. The epididymis head measures 0.7 x 1.4 x 1.2 cm. There is normal vascularity of the epididymis. There is a 5 mm epididymal cyst. There is a small hydrocele. There is no demonstrated varicocele. There is no demonstrated extratesticular mass or cyst. US/Testicular with Arterial Flow IMPRESSION: Normal bilateral testicles. Epididymal cysts bilaterally. Bilateral hydroceles. Electronically Signed: Tyler Otoole DO at 17:50 EDT Tel [phone], Service support ,
== END ==
LOC: US 13:21
PROVIDERS: PCP Family Medicine; Referring Provider Surgery; Visit Provider Surgery
DX: N50.89 Other specified disorders of the male genital organs (principal)
CPT/HCPCS: 76870; 93976

== ENCOUNTER 2020-12-12 11:09 | Day surgery (SDC) | payer OTHER, SELFPAY ==
[2020-12-06 13:22] VITALS: BMI 30.1
--- NOTE | 2020-12-10 13:08 | EKG12_ITS ---
Test Reason : PRE OP Blood Pressure : / mmHG Vent. Rate : 080 BPM Atrial Rate : 080 BPM P-R Int : 136 ms QRS Dur : 150 ms QT Int : 384 ms P-R-T Axes : 031 052 019 degrees QTc Int : 442 ms Normal sinus rhythm Right bundle branch block Abnormal ECG Confirmed by SYDNEY THRASHER, PHIL ([id number]), staff editor STEPHANIE NEVAREZ ([id number]) on 12/11/2020 11:29:47 AM Referred By: Arlene Lal Confirmed By:PHIL GRIMES MD
[2020-12-10 13:17] LABS: Hemoglobin 15.3 g/dL (13.0-16.5); Mean Corp Hgb Conc 33.3 g/dL (32-36); Mean Corpuscular Hgb 30.4 pg (27.0-32.0); Mean Corpuscular Volume 91.5 fL (80-94); Mean Platelet Vol. 9.5 fl (6.2-12.0); Platelet Count 214 K/mm3 (150-450); RBC Distribution Width CV 12.3 % (11.6-14.6); RBC Distribution Width SD 40.6 fl (35.1-43.9); Red Blood Count 5.03 M/mm3 (4.6-6.2); White Blood Count 5.9 K/mm3 (4.4-11.0)
[2020-12-10 21:09] LABS: Xtra Tube EP Lab EXTRA TUBE
[2020-12-12] VITALS (7 sets, daily range): BP systolic 128–146; BP diastolic 72–82; PULSE 71–81; RESP 16–18; TEMP 36.2–37.1; O2SAT 92–98; BMI 29.6
--- NOTE | 2020-12-12 07:13 | HP_ITS ---
Intake Vital Signs 12/06/20 Height 5 ft 10 in 12/06/20 Weight: 210 lb 3 oz 12/06/20 BMI 30.1 12/06/20 BP 138/78 H 12/06/20 Blood Pressure Location Lt brachial 12/06/20 Position Sitting 12/06/20 Respiration 16 12/06/20 Pulse 84 12/06/20 Pulse Source Monitor 12/06/20 Temp 98.2 F 12/06/20 Temp Source Temporal 12/06/20 Pulse Oximetry (%) 99 12/06/20 Oxygen Delivery Method room air Intake Visit Reasons: ER F/U 12/04 Hernia Chief Complaint: ER F/U Left inguinal hernia Septic Tank [employer]er Required: No Is patient in pain?: Yes (Left groin) Pain scale (1-10): 3 Allergies No Known Allergies Allergy (Verified 12/09/20 10:14) Medications Pantoprazole Sodium [Protonix] 40 mg PO BID #60 tablet 05/30/19 [Rx Confirmed 12/09/20] amlodipine 10 mg tablet 10 mg PO DAILY tablet 12/06/20 [History Confirmed 12/09/20] atorvastatin 20 mg tablet 20 mg PO QHS tablet 12/06/20 [History Confirmed 12/09/20] PFSH Medical History Left inguinal hernia (Acute) Abdominal pain (Acute) Sleep apnea (Acute) GERD (gastroesophageal reflux disease) (Chronic) Essential (primary) hypertension (Chronic) HLD (hyperlipidemia) (Chronic) Surgical History Hx of colonoscopy (Acute) Hx of shoulder surgery (Acute) History of nerve impingement (Acute) Hx of foot surgery (Acute) History of left heart catheterization (Resolved 05/30/19) Family History Father Heart disease Hypertension High cholesterol Myocardial infarction Mother Heart disease High cholesterol Hypertension Seizures Sister Kidney disease Social History (Updated 12/09/20 @ 13:[address] Arlene Lal MD) Smoking Status: Former smoker Smokeless tobacco user: chewing tobacco alcohol intake: current alcohol intake frequency: a few times a month substance use type: does not use caffeine: Yes what type of physical activity do you participate in: none frequency: does not exercise HPI HPI HPI: AVILA HOLMAN, is a 60 M who presents to the office today for HPI HPI Surgical H&P: Yes HPI: AVILA HOLMAN, is a 60 M who presents to the office today for a inguinal hernia. Patient states he has had this for the last 3 or so months rates the pain at 3?4/10 at that time. However patient did go to the ER 2 days ago due to increasing pain in the left groin. It was easily reduced by the ER physician. Patient states that the pain can be an 8/10 with coughing but with sitting but usually just at 2/10. Patient is not exactly sure how to reduce the hernia himself. Patient denies any nausea or vomiting is having bowel function. Patient states he did have colonoscopy in the last 5 years which only showed few polyps. Patient is also concerned about knot on his right testicle that is sensitive. Patient states he has had this for quite a while greater than 10 years and it has been sensitive in that time and has not noticed any change in size. Patient states he previously did see a urologist with [facility] but did not bring this up to them. ROS General General: No weight change, fatigue, colon cancer, breast cancer or weakness HEENT HEENT: No difficulty swallowing, eye injury, eye surgery, swollen glands or hoarseness Endo Endocrine: No thyroid disease, diabetes mellitus, thyroid cancer, Hair loss, heat intolerance or cold intolerance Skin Skin: No rash or changing moles Musc Musculoskeletal: No back problems, arthritis, rheumatoid arthritis, gout or joint pain Cardio Cardiovascular: Yes high blood pressure; no pacemaker, heart disease, atrial fibrillation, heart attack, heart stent, palpitations, shortness of breat with exertion or chest pain Psych Psychiatric: No depression, anxiety or hearing voices Resp Respiratory: No shortness of breath, Yes sleep apnea, No cough, No COPD, No asthma, No emphysema, No wheezing Gastro Gastrointestinal: Yes abdominal pain, No nausea or vomiting, No diarrhea, No constipation, No blood in stool, Yes acid reflux, No hemorrhoids, No ulcers, No gallbladder problem, No black,tarry stools Mahesh Hematologic: No blood thinners, No blood disorders, No bleeding, No anemia, No blood clots Neuro Neurologic: No weakness Exam Const General: cooperative, healthy appearing, comfortable, no acute distress, well developed Resp Effort & Inspection: normal respiratory effort Cardio Rate: regular rate GI Inspection: non-distended Palpation: soft, no guarding, hernia (< 5mm umbilical hernia,reducible), nontender Other: Left inguinal hernia on exam, reduces with laying down. Assessment & Plan Problems 1. Left inguinal hernia K40.90 2. Testicular swelling, right N50.89 Plan We will check an ultrasound of the testicles. Once that has resulted we will schedule the open left inguinal hernia repair with mesh. Plan to do a left inguinal herniorrhaphy with mesh. Reviewed the procedure with the patient including the risks, including but not limited to infection, bleeding, paresthesia, chronic back pain, injury to small bowel or contents of the spermatic cord, and recurrence. All questions were answered. Arlene Lal M.D. Pager: [phone] [facility] [address] [place] [address], [address] [place] [id number] Office: [phone] Orders Orders: Testicular with Arterial Flow 12/06/20 N50.89 Plan Detail Follow Up Will call patient with ultrasound results and plan to schedule hernia repair later next week Coding Level of Care Code Off vis,new,level 3 Diagnoses Left inguinal hernia K40.90 Testicular swelling, right N50.89 COVID (Procedure Consent) Procedure Criteria Procedure Criteria: Yes Elective The surgeon/proceduralist and patient have discussed in detail the risk of exposure to and/or potential harm posed by the COVID-19 virus with having a surgery/procedure at this time versus the risk of? delaying the surgery/procedure. It is not possible to know either the risk of delaying the surgery or procedure or chance of getting an infection with perfect accuracy, but a joint decision was made between the patient and the surgeon/proceduralist ?to proceed at this time with the scheduled surgery/procedure as indicated on the consent form. I have examined the patient the following changes are noted: Patient's ultrasound of the testicle is still pending patient; otherwise patient denies any changes.
[2020-12-12] MEDS: Lactated Ringers 1,000 ML 100 ML IV (12:10)
[2020-12-12] MEDS: Cefazolin 2 GM in 0.9% Normal Saline 100 ML IV (12:59)
[2020-12-12] MEDS: Bupivacaine Mpf 0.5% 30 ML VIAL (13:19)
--- NOTE | 2020-12-12 13:25 | HERN_PTH ---
PATIENT: AVILA HOLMAN LOC: [facility] [place] U#:[id number] AGE/SX: 60/M ROOM: RE12/12/[address]: Dr. Arlene Lal MD : [id number] BED: DIS: 12/12/2020 SPEC #: [id number] RECD: 12/12/20 15:06 STATUS: JOLANTA ANNY #: [id number] LORENE: 12/12/20 13:[address]: Arlene Lal DEPT: SURGICAL PATHOLOGY RECD BY: Chen Grady ENTERED: 12/13/20 07:03 SP TYPE: Hernia OTHR DR: Dr. Markos Brito MD Tissues: HERNIA Procedures: Surgery Specimen Level II HEADER OPERATION: Inguinal hernia with mesh PRE-OP DIAGNOSIS: Left inguinal hernia TISSUE SUBMITTED: Left hernia sac MICROSCOPIC DIAGNOSIS Soft tissue of left inguinal region, excision: Hernia sac with fibrosis and mild chronic inflammation. AM:leni 12/16/2020 MICROSCOPIC DESCRIPTION Slides are reviewed. GROSS DESCRIPTION Received in fixative is one container labeled with the patient's name and designated left hernia sac. The specimen consists of two glistening fragments of light to dark traore soft tissue measuring in aggregate 7 x 5 x 2 cm. Serial sections do not reveal mass lesions. Meat Puller sections are submitted in two cassettes. / SJ:leni 12/13/20 TC:5 CPT: 31014
--- NOTE | 2020-12-12 14:48 | OP.PCM_ITS ---
Report of Operation Date of Procedure: 12/12/20 Pre-Operative Diagnosis: left inguinal hernia Post-Operative Diagnosis: left indirect inguinal hernia Surgery/Procedure Performed:: Repair of left inguinal hernia with mesh director of corporate sales: CARLOS Oconnell Type of Anesthesia:: General/Supplemental Anesthesiologist: Jim Palacio Special Medications: Ancef 2 g IV x1 Specimen's removed: hernia sac Estimated Blood Loss (mL): < 10 cc Fluids Replaced: 1200 cc Description of Procedure: Indications: This is a 60-year-old male who developed left inguinal hernia. Left inguinal hernia repair with mesh was elected. Description procedure: The patient was taken to the operating room. A timeout was completed verifying correct patient, procedure, site, positioning, and special equipment prior to beginning procedure. General anesthesia was induced. The left groin was prepped and draped in usual sterile fashion. An incision was marked in the natural skin crease and planned in the near the pubic tubercle. A field block was produced by raising skin wheals along the proposed incision in a skin wound was raised about 1 cm medial to the anterior superior iliac spine using 0.5% Marcaine for a total of 10 mL. Skin incision was made with the knife and deepened through the Dilia and Camper's fascia with electrocautery until the aponeurosis of the external oblique was a identified. This was cleaned and the external ring exposed. Hemostasis was achieved in the wound. An incision was made in the midpoint of the external oblique aponeurosis in the direction of its fibers. The ilioinguinal nerve was identified and protected throughout the dissection. Flaps of the external oblique were developed cephalad and inferiorly. The cord was identified. It was gently dissected free at the pubic tubercle and encircled with a Arpan drain. Attention was directed to the anterior medial aspect of the cord where an indirect hernia sac was identified. There were dense adhesions involving the hernia sac were carefully lysed. The sac was carefully dissected free from the cord down to the level of the internal ring. The vas on the testicular vessels were identified and protected from harm. A finger was passed into the peritoneal cavity and the floor of the inguinal canal was assessed and found to be adequate. The femoral canal was palpated and no hernia identified. The hernia sac was ligated at the base with a pursestring of a silk suture-abdominal contents were reduced. Redundant sac was excised and submitted to pathology. The stump of the sac was checked for hemostasis and allowed to retract into the abdomen. Attention then turned to the floor of the canal which appeared to be weakened without a well-defined defect or sac. A Bard keyhole mesh was cut to the appropriate size. Beginning at the pubic tubercle, the mesh was sutured to the inguinal ligament inferiorly and the conjoined tendon superiorly using interrupted sutures of 2-0 PDS sutures. Care was taken to assure the mesh was placed in the last fashion to avoid excess tension and no neurovascular structures were caught in the repair. Laterally the tails of mesh were crossed and the internal ring recreated, allowing for passage of the surgeon's 5th fingertip. Hemostasis was again checked. The Arpan drain was removed. Area was irrigated with saline. External oblique aponeurosis was closed running suture of 3-0 Vicryl, taking care not to catch the ilioinguinal nerve in the suture line. Dilia's fascia was closed with interrupted sutures of 3-0 Vicryl. Skin was closed running subcuticular suture of 4-0 Monocryl with Steri-Strips gauze and Tegaderm. The testes was gently pulled down to the anatomical position the scrotum. Patient tolerated the procedure well and sent to the postanesthesia care in stable condition. Grafts/Implants Used: Bard mesh keyhole (lot [id number] ref [id number]) - Complications none
--- NOTE | 2020-12-12 14:55 | DCINST_ITS ---
Discharge Diet: Light diet - advance as tolerated Discharge Activity: May not drive while taking narcotic pain medications. May shower in (days): 1 Lifting Restrictions: No lifting greater than 20 pounds for 2 weeks, no strenuous exercise for 4 Call your doctor if your incision/area has: Continuous Slow Oozing, Sudden Increased Bleeding, Increased Pain/ Swelling, Increased Redness, Foul Smelling Discharge, Swelling at the incision site Call your doctor if you observe: Fever of 101 or Higher Remove Dressing in (days):: 2 Additional Instructions: Okay to take ibuprofen 400-600 mg PO q6hr PRN along with the hydrocodone/acetaminophen. Avoid Tylenol since there is already Tylenol in the hydrocodone/acetaminophen. Take all pain meds with food. Hydrocodone/acetaminophen can cause constipation recommend taking daily stool softener (i.e. Colace/docusate) while taking the pain meds. Recommend starting some MiraLAX in 1 to 2 days if no bowel movement. If still no bowel movement the following day recommend taking magnesium citrate half the bottle and waiting 4-6 hours if still no results take the other half the bottle. Allergies/Adverse Reactions: Allergies No Known Allergies Allergy (Verified 12/12/20 11:46) Medications to take at Discharge Pantoprazole Sodium [Protonix] 40 mg PO BID #60 tablet 05/30/19 amlodipine 10 mg tablet 10 mg PO DAILY tablet 12/06/20 atorvastatin 20 mg tablet 20 mg PO QHS tablet 12/06/20 Hydrocodone Bitart/Apap 5-325 [[place] 5MG-325MG] 1 - 2 tablet PO Q6H PRN PRN 4 Days #20 tab 12/12/20 Primary Care Physician: Markos Brito MD [Primary Care Provider] - Test Results: Test results from this visit will be discussed in further detail at your follow- up appointment, if applicable. Please Follow Up With: Arlene Lal MD - For 5 PM and on the weekends call [phone] with any concerns When: The office for a follow-up appointment in 2 weeks. Proposed Discharge Date: 12/12/20
[2020-12-12] MEDS: HYDROcodone Bitartrate/Apap 5/325 Tablet PO (17:08)
== END 2020-12-12 17:35 | disposition home or self-care (01) ==
LOC: SDC 11:12 → AC 11:13
PROVIDERS: Anesthesiology; PCP Family Medicine; Referring Provider Surgery; Visit Provider Surgery
PROC: (CPT 49505; principal; 2020-12-12 13:10)
DX: K40.90 Unilateral inguinal hernia, without obstruction or gangrene, not specified as recurrent (principal); N50.89 Other specified disorders of the male genital organs; I10 Essential (primary) hypertension; G47.30 Sleep apnea, unspecified; K21.9 Gastro-esophageal reflux disease without esophagitis; E78.5 Hyperlipidemia, unspecified; E78.00 Pure hypercholesterolemia, unspecified; Z86.718 Personal history of other venous thrombosis and embolism; Z79.899 Other long term (current) drug therapy; Z87.891 Personal history of nicotine dependence
CPT/HCPCS: 49505; 36415; 85027; 88302; 93005; J7120; C1781; J2405

== ENCOUNTER 2022-08-28 10:51 | Emergency (ER) | payer OTHER, SELFPAY ==
[2022-08-28] VITALS (10 sets, daily range): BP systolic 129–141; BP diastolic 79–93; PULSE 66–84; RESP 18–28; TEMP 36.6; O2SAT 93–100; BMI 31.5
--- NOTE | 2022-08-28 11:51 | ED.RN ---
PT WIFES APPROACHES THIS RN IN TRIAGE, REPORTS PT WITH INCREASED SOB, CHEST PRESSURE, 7/10. PT REPEAT VS, HR:79 RESPIRATORY RATE: 20 SP02: 100%. CALLED FOR REPEAT EKG.
--- NOTE | 2022-08-28 12:33 | EKG12_ITS ---
Test Reason : Blood Pressure : / mmHG Vent. Rate : 087 BPM Atrial Rate : 087 BPM P-R Int : 142 ms QRS Dur : 146 ms QT Int : 390 ms P-R-T Axes : 029 024 -06 degrees QTc Int : 469 ms Normal sinus rhythm Right bundle branch block Cannot rule out Inferior infarct , age undetermined Abnormal ECG Confirmed by SYDNEY THRASHER, PHIL ([id number]), scientific publications editor STEPHANIE NEVAREZ ([id number]) on 09/01/2022 10:45:51 AM Referred By: THIAGO Confirmed By:PHIL GRIMES MD
--- NOTE | 2022-08-28 12:48 | RAD_ITS ---
STUDY: X-RAY CHEST REASON FOR EXAM: Male, 62 years old. Chest pain and shortness of breath TECHNIQUE: PA and 2 lateral views of the chest. COMPARISON: 05/29/2019 FINDINGS: EKG leads overlie the chest The lungs are clear and expanded. There is no demonstrated pleural abnormality. Normal size heart. Normal mediastinum and mita. Normal visualized pulmonary arteries. Normal visualized aortic arch and descending thoracic aorta. Normal visualized thoracic spine. Normal visualized ribs, clavicles, and shoulders. There is no demonstrated abnormality of the visualized soft tissue structures of the upper abdomen. RAD/Chest PA and Lateral IMPRESSION: Normal x-ray examination of the chest. Electronically Signed: Kimo Duarte MD at 13:16 EST ,
--- NOTE | 2022-08-28 13:01 | ED.RN ---
DDIMER 1.[address] DAS NOTIFIED
--- NOTE | 2022-08-28 13:06 | EDS_ITS ---
HPI History of Present Illness Chief Complaint: Shortness of Breath Informant: patient Onset/Context/Timing Onset: Days Context: sudden Timing: Continuous and Waxes and wanes Quality: Positive for Dyspnea on exertion; Negative for Orthopnea, PND or Wheezing Current Severity: Mild Maximum Severity: Moderate Worsened by: Exertion; Not Worsened By Lying flat or Coughing Relieved by: Nothing Associated Symptoms Negative for cough, rhinorrhea, post nasal drip, ear pain, fever, sore throat, subjective, chills, sweats, clear sputum, white sputum, yellow sputum or green sputum Chest Pain: Positive for Continuous (Abnormal sensation. Patient is not able to be more specific) Narrative Narrative: Patient is a 62-year-old male with history of GERD, essential hypertension and hyperlipidemia. He did have a cardiac cath which apparently was unremarkable. Patient presents with shortness of breath of the past 2+ days as well as discomfort in his chest. He denies orthopnea or PND. He denies leg pain or discoloration. Does have swelling which is not a new finding. He denies fever, chills night sweats. He denies rhinorrhea, congestion postnasal drainage sore throat. He has an occasional nonproductive cough. He denies vomiting or diarrhea. He denies back pain. He denies urologic symptoms. He denies black or maroon-colored stool. PE Risk Factors: Negative for Cancer, OCP + Smoking + > 35, Prior DVT or PE, Recent immobilization, Recent surgery or Recent travel Prior similar symptoms: No Recent Illness/Hospitalization: No PFSH PFSH Medical History Abdominal pain Essential (primary) hypertension GERD (gastroesophageal reflux disease) HLD (hyperlipidemia) Left inguinal hernia Sleep apnea Home Medications pantoprazole 40 mg tablet,delayed release 40 mg PO BID #60 tabs 05/30/19 [Rx Last Taken 12/12/20 07:30] amlodipine 10 mg tablet 10 mg PO DAILY 12/06/20 [History Last Taken 12/12/20 07:30] atorvastatin 20 mg tablet 20 mg PO QHS 12/06/20 [History Last Taken Unknown] Allergy/AdvReac Type Severity Reaction Status Date / Time No Known Allergies Allergy Verified 12/26/20 13:27 Family History Father Heart disease Hypertension High cholesterol Myocardial infarction Mother Heart disease High cholesterol Hypertension Seizures Sister Kidney disease Surgical History History of left heart catheterization (05/30/19) History of nerve impingement Hx of colonoscopy Hx of foot surgery Hx of shoulder surgery S/P left inguinal hernia repair Social History (Updated 08/28/22 @ 13:[address] Curtis Fontaine MD) household members: spouse Smoking Status: Former smoker Smokeless tobacco user: chewing tobacco alcohol intake: current alcohol intake frequency: a few times a month substance use type: does not use caffeine: Yes what type of physical activity do you participate in: none frequency: does not exercise ROS ROS ED Constitutional Constitutional ED: Denies chills, fever(s), sweats or weight loss Eyes Eyes: Denies blurry vision, change in vision or diplopia ENT ENT ED: Denies ear pain, rhinorrhea or sore throat Cardiovascular Cardiovascular: Reports chest pain; Denies orthopnea, palpitations, paroxysmal nocturnal dyspnea or racing heartbeat Respiratory/Chest Respiratory/Chest: Reports dyspnea and dyspnea on exertion; Denies cough, orthopnea or paroxysmal nocturnal dyspnea Gastrointestinal Gastrointestinal: Denies abdominal pain, constipation, diarrhea, melena or vomiting Genitourinary Genitourinary ED: Denies dysuria, hematuria or urinary frequency Musculoskeletal Musculoskeletal: Denies arthralgias, back pain, myalgias or neck pain Integumentary Denies abscess, Abrasions or rash Neurologic Neurologic: Denies headache(s), paresthesias or weakness Endocrine Endocrinology: Denies cold intolerance or heat intolerance Hematologic/Lymphatic Hematologic/Lymphatic: Denies easy bleeding or easy bruising EXAM Physical Exam Const Vital Signs: 08/28/22 10:52 08/28/22 12:00 08/28/22 12:03 Temperature 98 F Temperature Source Temporal Pulse Rate 84 81 Respiratory Rate 18 19 H Respiratory Effort Short of Breath Labored Respiratory Depth Deep Respiratory Pattern Normal Blood Pressure 141/85 H 136/93 H Blood Pressure Mean 103 107 Pulse Ox 97 100 Oxygen Delivery Method Room Air Room Air Nasal Cannula Oxygen Flow Rate (L/min) 2 08/28/22 15:16 08/28/22 16:03 08/28/22 17:14 Temperature Temperature Source Pulse Rate 66 73 67 Respiratory Rate 28 H 27 H 27 H Respiratory Effort Respiratory Depth Respiratory Pattern Blood Pressure 141/79 H 129/81 H 132/84 H Blood Pressure Mean 99 97 100 Pulse Ox 96 93 93 Oxygen Delivery Method Room Air Room Air Room Air Oxygen Flow Rate (L/min) 08/28/22 18:07 08/28/22 19:03 08/28/22 20:02 Temperature Temperature Source Pulse Rate 67 70 66 Respiratory Rate 23 H 24 H 20 H Respiratory Effort Respiratory Depth Respiratory Pattern Blood Pressure 132/82 H 130/89 H Blood Pressure Mean 98 102 Pulse Ox 96 95 95 Oxygen Delivery Method Room Air Room Air Room Air Oxygen Flow Rate (L/min) Positive well nourished, well developed and obese Constitutional Narrative: Patient will occasionally take a deep breath and appears dyspneic. General Appearance ED: well developed; Negative for pallor Nutritional Appearance: obese HEENT Reports moist mucous membranes HEENT Narrative: Head is normocephalic. Ears normal. TMs normal. Nares patent. Uvula midline. No erythema to the posterior pharynx. atraumatic Eyes PERRL and EOMs intact bilaterally General Eye ED: Negative for pale conjunctiva or scleral icterus Neck no lymphadenopathy, supple, no meningeal signs and no JVD Resp No normal respiratory effort and clear to auscultation bilaterally Effort and Inspection: Negative for pain with movement Cardio regular rate, regular rhythm, S1 normal heart sound, S2 normal heart sound and no murmurs GI non-tender, non-distended and no masses Auscultation: hypoactive bowel sounds Palpation: soft; Negative for hepatomegaly or splenomegaly Back/Spine no CVA tenderness Extremity normal to inspection General Extremety ED: Yes edema; Negative for tenderness General Extremity: edema Neuro oriented x3, CN's II-XII intact bilaterally and no sensory deficits noted Jeffery Coma Scale: document GCS findings Spontaneous Obeys Commands Oriented 15 Sensorium / Orientation: alert Speech: speech normal Motor Exam: strength 5/5 throughout Psych mental status grossly normal Thought Process: normal thought process Skin no wounds and skin turgor normal General Skin Exam: Negative for jaundice or pallor Lesions: no lesions Rashes: no rashes MDM MDM MDM Narrative Medical decision making narrative: Patient presents with dyspnea and abnormal chest discomfort. Also has premature ventricular beats noted on the monitor. Differential diagnosis would include pneumonia, PE, congestive heart failure. EKG, chest x-ray appropriate blood work was obtained which included D-dimer, troponin BMP to assess renal function and CBC to evaluate for anemia which is a cause of dyspnea. With elevated D-dimer even after corrected for age and normal renal function with a normal chest x-ray will obtain a CTA to evaluate for pulmonary embolus. CTA is negative for pulmonary embolus, dissection or any pulmonary abnormality. Patient has a normal troponin with greater than 48 hours of pain. With a normal troponin of 7 with 48 hours of pain cardiac etiologies been ruled out. Since the CTA is negative he will be discharged to home. Lab Data Attestation: I reviewed the patient's lab results. Labs: Laboratory Results - last 24 hr 08/28/22 08/28/22 12:00 12:00 D-Dimer Quant (PE/DVT) 1.10 H* Sodium 139 Potassium 3.9 Chloride 106 Carbon Dioxide 25.0 Anion Gap 8 BUN 13 Creatinine 1.11 Estim Creat Clear Calc 71.25 Est GFR (MDRD) Af Amer 86 Est GFR (MDRD) Non-Af 71 BUN/Creatinine Ratio 11.7 Glucose 107 H Calcium 9.8 Total Bilirubin 0.70 AST 32 ALT 58 Alkaline Phosphatase 85 Troponin I High Sens 7 Total Protein 8.6 H Albumin 4.0 Globulin 4.6 H Albumin/Globulin Ratio 0.9 Radiography Chest X-Ray - ED: Read by ED Physician (Chest x-ray reveals no acute abnormality. There is minimal chronic changes limit inspiration. Cardiac s ilhouette and size normal. Perihilar regions unremarkable. Lung parenchyma is unremarkable. Osseous trucks are unremarkable. This was independently reviewed and interpreted by me at 09/01/2005.) Diagnostic Testing: Clinical Impression(s) from Imaging Studies Chest X-Ray 08/28/22 12:48 IMPRESSION: Normal x-ray examination of the chest. Electronically Signed: Kimo Duarte MD at 13:16 EST , Chest CTA 08/28/22 13:16 IMPRESSION: Normal CTA chest examination, without a demonstrated pulmonary embolism or arterial dissection. Electronically Signed: Kathrin Pastrana MD at 14:50 EST , Rhythm Strip Rhythm Strip: Sinus Rhythm Rate: 72 Ectopy: PVC(s) (Patient has numerous PVCs and has had runs of bigeminy as well as trigeminy.) EKG Initial EKG: Attestation: I personally reviewed and interpreted this EKG as follows: Interpretation: Sinus Rhythm (Ventricular rate is 87. Patient has QRS morphology consistent with a right bundle branch block. [place] interval is 142 ms. QS duration 246 ms. QT duration 390 ms. [place] is normal.) Discharge Plan Triage Chief Complaint: Shortness of Breath ED Provider: Curtis Fontaine Dx/Rx/DC Orders Clinical Impression: Chest pain, HLD (hyperlipidemia), Essential (primary) hypertension, History of gastroesophageal reflux (GERD), Acute dyspnea Instructions: ED Chest Pain, Noncardiac, ED Chest Pain, Uncertain Cause Prescriptions: No Action atorvastatin 20 mg tablet 20 mg PO QHS Label Comments: TAKE 1 TABLET BY MOUTH EVERYDAY AT BEDTIME FOR CHOLESTEROL amlodipine 10 mg tablet 10 mg PO DAILY Label Comments: TAKE 1 TABLET BY MOUTH EVERY DAY pantoprazole 40 MG tablet 40 mg PO BID Qty: 60 0RF Primary Care Provider: Markos Brito Referrals: Markos Brito MD [Primary Care Provider] - 3-5 Days if not improving Disposition Disposition: Home, Self Care
[2022-08-28 13:10] LABS: ALB/GLOB Ratio 0.9 RATIO (0.9-2.4); AST(SGOT) 32 U/L (15-37); Alanine Aminotransfer ALT/SGPT 58 U/L (16-61); Alkaline Phosphatase 85 U/L (45-117); Anion Gap 8 (5-15); BUN 13 mg/dL (7-18); BUN/Creat Ratio 11.7 RATIO (10-20); Calcium,Total 9.8 mg/dL (8.5-10.1); Chloride 106 mmol/L (98-107); Creatinine, Serum 1.11 mg/dL (0.70-1.30); EST Glomerular Filtration Rate 71 mL/min (>60); Est Glom Filt Rate - Afr Amer 86 mL/min (>60); Estimated Creatinine Clearance 71.25 ml/min; Globulin 4.6 g/dL (2.2-4.2); Glucose 107 mg/dL (74-106); Potassium 3.9 mmol/L (3.5-5.1); Protein, Total 8.6 g/dL (6.4-8.2); Sodium Level 139 mmol/L (136-145); Troponin-I HS (w/2H Reflex) 7 pg/mL (3.0-78.0)
--- NOTE | 2022-08-28 13:16 | CT_ITS ---
STUDY: CTA CHEST REASON FOR EXAM: Male, 62 years old. Dyspnea, elevated D-dimer RADIATION DOSAGE (If Supplied By Facility): CTDIvol = ( 9.92 ) mGy, DLP = ( 473.30 ) mGycm TECHNIQUE: The examination was performed with the intravenous administration of IV 100mL Isovue-370. Post-processing of the angiographic images was performed, with multiplanar reformation and 3D reconstruction. Individualized dose optimization techniques were used for this CT. COMPARISON: August 28, 2022 chest x-ray, May 29, 2019 chest x-ray FINDINGS: Normal enhancement of the main pulmonary artery and right and left pulmonary arteries. Normal enhancement of the bilateral peripheral pulmonary arteries. There is no demonstrated pulmonary embolism. The aorta is tortuous and minimally calcified. There is no demonstrated aortic dissection. There is borderline cardiac enlargement. There are nonspecific subcentimeter mediastinal lymph nodes. Normal hilar regions. Normal visualized trachea and bronchi. The lungs are well expanded. There are few scattered emphysematous blebs within the lungs. There is minimal lower lobe atelectasis. Normal pleura. Normal chest wall structures. There is minimal degenerative change in the thoracic spine. The liver appears mildly enlarged and fatty infiltrated. CT/CTA Chest W/WO Contrast IMPRESSION: Normal CTA chest examination, without a demonstrated pulmonary embolism or arterial dissection. Electronically Signed: Kathrin Pastrana MD at 14:50 EST ,
== END 2022-08-28 21:57 | disposition home or self-care (01) ==
PROVIDERS: Emergency Provider Emergency Medicine; PCP Family Medicine; Visit Provider Emergency Medicine
DX: R07.9 Chest pain, unspecified (principal); R06.02 Shortness of breath; E78.5 Hyperlipidemia, unspecified; I10 Essential (primary) hypertension; Z87.891 Personal history of nicotine dependence; E66.9 Obesity, unspecified
CPT/HCPCS: 71046; 71275; 80048; 80053; 84484; 85379; 93005; 99284; Q9967; A4216

== ENCOUNTER → 2023-04-19 | Outpatient (CLI) | payer OTHER, SELFPAY | END | disposition home or self-care (01) | LOC: SL 19:35 | PROVIDERS: PCP Family Medicine; Referring Provider Psychiatry & Neurology Sleep Medicine; Visit Provider Psychiatry & Neurology Sleep Medicine | DX: G47.33 Obstructive sleep apnea (adult) (pediatric) (principal) | CPT/HCPCS: 95811 ==

== ENCOUNTER → 2023-05-10 | Outpatient (CLI) | payer OTHER, SELFPAY | END | disposition home or self-care (01) | LOC: SL 10:33 | PROVIDERS: PCP Family Medicine; Visit Provider Psychiatry & Neurology Sleep Medicine | DX: G47.33 Obstructive sleep apnea (adult) (pediatric) (principal) ==

== ENCOUNTER 2024-12-02 19:47 | Emergency (ER) | payer BC, SELFPAY ==
[2024-12-02 19:48] VITALS: BP 143/77; PULSE 73; RESP 15; TEMP 36.6; O2SAT 98; BMI 30.8
--- NOTE | 2024-12-02 20:18 | CT_ITS ---
PROCEDURE: ABDOMEN/PELVIS W IV CONT ONLY 12/02/2024 REASON FOR EXAM: RIGHT GROIN PAIN AFTER RECENT INGUINAL HERNIA REPA TECHNIQUE: Abdomen and pelvis CT with intravenous contrast. Coronal and Sagittal reconstruction series were provided. PATIENT PREPARATION: Per protocol ORAL CONTRAST TYPE: None. AMOUNT: mL CONTRAST: Isovue 370 VOLUME: 96 mL Not Provided Gauge IV One or more dose reduction techniques were used (e.g., Automated exposure control, adjustment of the mA and/or kV according to patient size, use of iterative reconstruction technique. RADIATION DOSE SUMMARY: CTDlvol: 31 mGy DLP: 1327 mGycm COMPARISON: None FINDINGS: Lung bases: Mild dependent atelectasis Liver: Normal size. No mass. Gallbladder: Unremarkable Spleen: Normal size. Pancreas: Normal size without evidence of mass surrounding inflammation or ductal dilation. Adrenals: Unremarkable Kidneys: Atrophic left kidney. 4.8 cm exophytic right renal cysts. No follow- up is recommended. Prominent right renal pelvis. No evidence of nephrolithiasis bilaterally. Bladder: Decompressed urinary bladder with suspected urinary bladder wall thickening, concerning for cystitis. Reproductive Organs: Heterogeneous appearance of the prostate gland with areas of coarse calcification. Bowel: Scattered colonic diverticulosis without evidence of diverticulitis. No inflammatory changes of the bowel loops. The stomach is unremarkable. Appendix: Unremarkable Soft tissue: Mild soft tissue stranding at the right inguinal hernia with multiple foci of air and ill-defined fluid collection. Lymph nodes: No lymphadenopathy. Vasculature: Mild diffuse atherosclerotic calcifications are noted. Peritoneum / Retroperitoneum: Please see above. Bones: Mild degenerative changes of the lumbar spine. CT/Abdomen/Pelvis W IV Cont ONLY IMPRESSION: Status post right inguinal hernia repair with mild soft tissue stranding and mu ltiple foci of and an ill-defined fluid collection, this may represent postsurgical changes of recent surgical interven tion. However, underlying early abscess can not be completely excluded. Decompressed urinary bladder with suspected urinary bladder wall thickening, pl ease correlate with urinalysis for infection. Heterogeneous appearance of the prostate gland with areas of calcification, ple ase correlate with PSA. [facility]
[2024-12-02] MEDS: Ondansetron 4 MG/2 ML Vial IV (20:27)
[2024-12-02] MEDS: Morphine 2 MG/ML Syringe IV (20:27)
[2024-12-02] MEDS: 0.9% Normal Saline (1000mL) 1,000 ML 999 ML IV (20:27)
[2024-12-02 20:29] LABS: Absolute Lymphocyte Count 1.96 X10^3/uL (0.83-4.51); Absolute Neutrophil Count 4.1 X10^3/uL (2.0-7.7); Basophil# 0.04 X10^3/uL; Basophil% 0.5 % (0-1); Eosinophils% 2.7 % (0-5); Hematocrit 44.2 % (40-54); Lymphocyte # 1.96 X10^3/ul (0.83-4.51); Lymphocyte % 26.9 % (19-41); Mean Corp Hgb Conc 33.9 g/dL (32-36); Mean Corpuscular Hgb 30.5 pg (27.0-32.0); Mean Platelet Vol. 9.7 fl (6.2-12.0); Monocyte# 0.99 X10^3/uL; Monocyte% 13.6 % (0-10); NRBC Flagged by Analyzer 0 % (0-5); Neutrophil # 4.05 X10^3/uL (2.7-7.7); Neutrophil % 55.8 % (47-70); Platelet Count 243 K/mm3 (150-450); RBC Distribution Width CV 12.2 % (11.6-14.6); RBC Distribution Width SD 40.1 fl (35.1-43.9); Red Blood Count 4.91 M/mm3 (4.6-6.2); White Blood Count 7.3 K/mm3 (4.4-11.0)
--- NOTE | 2024-12-02 20:33 | EX.ED.DYSGE1 ---
HPI History of Present Illness Chief Complaint: GI Bleed Narrative Narrative: Chief complaint and HPI: Right groin pain and swelling. 64-year-old male with past medical history of left inguinal hernia status post open repair on 11/24/[address] Doev at [facility] in [place] who presents for evaluation of right groin pain and swelling. Patient states that his surgery was performed electively. He states he was discharged home the same day. Patient states since discharge she has had swelling and pain at his incision site. He states that it feels more firm than it did. He also endorses bright red blood for the past 3 days with bowel movements. Blood is on the toilet paper and in the bowl. Denies any dark stools. Denies any rectal pain. Denies any fever, chills, shortness of breath, chest pain, abdominal pain, nausea, vomiting, dysuria, penile or testicular pain. Review of systems: See HPI Medications: As listed on the chart Allergies: As listed on the chart PFSH: Per chart Vital signs: As listed on the chart. Reviewed. Physical exam: Gen: A&O x3, NAD Head: Normocephalic, atraumatic Eyes: No sclera icterus, conjunctiva clear ENT: Moist mucous membranes Neck: Trachea midline, No JVD CV: RRR, no murmurs, no peripheral edema Resp: Lungs CTA BL, no w/r/c GI: Abd soft, non-distended, non-tender, no r/r/g Rectal: Normal external examination except for a non-thrombosed hemorrhoid. No fissures. Normal tone and sensation. No masses, fluctuance, or tenderness. No pain out of proportion. Brown stool without any bright red blood or melena. : Patient has a well hearing right inguinal incision from his previous surgery, no erythema/fluctuance/purulence, mildly tender to palpation, mildly indurated under the incision. Circumcised penis. No penile tenderness or discharge. No penile or testicular swelling. Normal lie and position of the testicles. No testicular tenderness, masses, or skin changes. Cremasteric reflexes intact and equal bilaterally. No rashes. No palpable hernias. Musc: Full ROM, no deformity Skin: Warm, dry Neuro: Alert, oriented, grossly intact, sensation intact Psych: Cooperative, appropriate mood and affect [facility] Medical History (Updated 12/02/24 @ 22:[address] Lexa Barnes, DO) Physical exam, pre-employment Left inguinal hernia Abdominal pain Sleep apnea GERD (gastroesophageal reflux disease) Essential (primary) hypertension HLD (hyperlipidemia) Home Medications ?Medication ?Instructions ?Recorded ?Last Taken ?Type pantoprazole 40 mg tablet,delayed 40 mg PO BID #60 tabs 05/30/19 12/12/20 07:30 Rx release amlodipine 10 mg tablet 10 mg PO DAILY 12/06/20 12/12/20 07:30 History atorvastatin 20 mg tablet 20 mg PO QHS 12/06/20 Unknown History Allergy/AdvReac Type Severity Reaction Status Date / Time No Known Allergies Allergy Verified 12/02/24 19:51 Family History Father Heart disease Hypertension High cholesterol Myocardial infarction Mother Heart disease High cholesterol Hypertension Seizures Sister Kidney disease Surgical History (Updated 12/02/24 @ 22:[address] Lexa Barnes, ) S/P left inguinal hernia repair Hx of colonoscopy Hx of shoulder surgery History of nerve impingement Hx of foot surgery History of left heart catheterization (05/30/19) Social History household members: spouse Smoking Status: Former smoker Smokeless tobacco user: chewing tobacco alcohol intake: current alcohol intake frequency: a few times a month substance use type: does not use caffeine: Yes what type of physical activity do you participate in: none frequency: does not exercise EXAM Physical Exam Const Vital Signs: 12/02/24 19:48 12/02/24 21:47 Temperature 97.9 F Temperature Source Temporal Pulse Rate 73 72 Respiratory Rate 15 15 Blood Pressure 143/77 H 138/70 H Blood Pressure Mean 99 92 Pulse Ox 98 95 Oxygen Delivery Method Room Air Room Air MDM MDM MDM Narrative Medical decision making narrative: 64-year-old male with past medical history of left inguinal hernia status post open repair on 11/24/[address] Dove at [facility] in [place] who presents for evaluation of right groin pain and swelling as well as bright red blood per rectum. See physical exam findings. Patient is not on blood thinners. Differential diagnosis includes but is not limited to normal postoperative changes/pain, seroma, hematoma, abscess, hemorrhoidal bleeding, electrolyte abnormality, UTI. Morphine, Zofran, NS bolus ordered. CT abdomen pelvis ordered with laboratory workup. CBC without leukocytosis or anemia. BMP unremarkable. Lactic acid unremarkable. UA negative for UTI. Stool occult positive. Suspect likely hemorrhoidal bleeding given that this was bright red and in the bowl as well as the toilet paper. Patient has had no GI bleeding here in the emergency department. Hemoglobin is stable. Not on blood thinners. CT abdomen pelvis shows status post right inguinal hernia repair with mild soft tissue stranding with multiple foci of air and ill-defined fluid collection, may represent postsurgical changes versus early abscess. Decompressed urinary bladder with suspected urinary bladder wall thickening, please correlate with UA for infection. UA is negative for UTI. Heterogeneous appearance of the prostate gland with areas of calcification, please correlate with PSA. This will need to be obtained outpatient. Given CT abdomen pelvis results, Dr. Dove at [facility] consulted. Patient was updated on all results and the plan to reach out to his surgeon. [facility] was notified however they accidentally gave me GI staff general surgery. Awaiting another callback. Patient was signed out to night physician. He will await the call. Suspect plan of discharge home and follow-up with his surgeon on Wednesday which she has an appointment for. Impression: 1. Right groin swelling and pain after right open inguinal hernia repair 2. Lower GI bleed, bright red blood per rectum Lab Data Labs: Laboratory Results - last 24 hr 12/02/24 12/02/24 12/02/24 20:01 20:29 21:00 WBC 7.3 RBC 4.91 Hgb 15.0 Hct 44.2 MCV 90.0 MCH 30.5 MCHC 33.9 RDW Std Deviation 40.1 RDW Coeff of Eddie 12.2 Plt Count 243 MPV 9.7 Immature Gran % (Auto) 0.500 Neut % (Auto) 55.8 Lymph % (Auto) 26.9 [place] % (Auto) 13.6 H Eos % (Auto) 2.7 Baso % (Auto) 0.5 Absolute Neuts (auto) 4.1 Absolute Lymphs (auto) 1.96 Nucleated RBC % 0 Sodium 140 Potassium 4.0 Chloride 104 Carbon Dioxide 23.3 Anion Gap 13 BUN 14 Creatinine 1.02 Estim Creat Clear Calc 85.70 Est GFR (MDRD) Non-Af 82 BUN/Creatinine Ratio 13.9 Glucose 106 H Lactic Acid 1.1 Calcium 9.7 Urine Color Straw Urine Clarity Clear Urine pH 7.0 Ur Specific [place] 1.005 Urine Protein 15 H Urine Glucose (UA) Normal Urine Ketones Negative Urine Occult Blood Negative Urine Nitrite Negative Urine Bilirubin Negative Urine Urobilinogen Normal Ur Leukocyte Esterase Negative Urine RBC 0 SEEN Urine WBC 0 SEEN Ur Squamous Epith Cells 0 SEEN Urine Bacteria 0 SEEN Urine Mucus 0 SEEN Radiography Diagnostic Testing: Clinical Impression(s) from Imaging Studies Abdomen/Pelvis CT 12/02/24 20:18 IMPRESSION: Status post right inguinal hernia repair with mild soft tissue stranding and multiple foci of and an ill-defined fluid collection, this may represent postsurgical changes of recent surgical intervention. However, underlying early abscess can not be completely excluded. Decompressed urinary bladder with suspected urinary bladder wall thickening, please correlate with urinalysis for infection. Heterogeneous appearance of the prostate gland with areas of calcification, please correlate with PSA. Reading Location: [facility] Discharge Plan Triage Chief Complaint: GI Bleed ED Provider: Lexa Barnes Dx/Rx/DC Orders Clinical Impression: Status post right inguinal hernia repair, GI bleed Instructions: ED Lower GI Bleeding (Stable) Prescriptions: No Action atorvastatin 20 mg tablet 20 mg PO QHS Patient Comments: TAKE 1 TABLET BY MOUTH EVERYDAY AT BEDTIME FOR CHOLESTEROL amlodipine 10 mg tablet 10 mg PO DAILY Patient Comments: TAKE 1 TABLET BY MOUTH EVERY DAY pantoprazole 40 MG tablet 40 mg PO BID Qty: 60 0RF Primary Care Provider: Markos Brito Referrals: Follow-up with your surgeon [Other] - As soon as possible Markos Brito MD [Primary Care Provider] - 3-5 Days Activity Restrictions/Additional Instructions: Follow-up with your general surgeon, Dr. Dove. Keep your appointment on Wednesday. Monitor for worsening bleeding. Return back to the ED if she symptoms change or worsen. Your CT showed calcifications in your prostate, make sure that you get your PSA checked by your primary care physician. Follow-up with primary care physician. Print Language: Kinyarwanda Disposition Disposition: Home, Self Care
[2024-12-02 20:43] LABS: Anion Gap 13 (5-15); BUN 14 mg/dL (4-19); BUN/Creat Ratio 13.9 RATIO (10-20); Calcium,Total 9.7 mg/dL (7.6-11.0); Carbon Dioxide 23.3 mmol/L (21.0-32.0); Chloride 104 mmol/L (98-108); Creatinine, Serum 1.02 mg/dL (0.70-1.20); EST Glomerular Filtration Rate 82 (>60); Glucose 106 mg/dL (70-99); Sodium Level 140 mmol/L (133-145)
[2024-12-02 21:17] LABS: Lactic Acid 1.1 mmol/L (0.0-2.0)
[2024-12-02 21:19] LABS: Bacteria 0 SEEN /hpf (None Seen); Mucous, Urine 0 SEEN /hpf (<or=2+); Red Blood Cells-Urine 0 SEEN /hpf (0-5); Squamous Epithelial Cells - UA 0 SEEN /hpf (0-5); White Blood Cells 0 SEEN /hpf (0-5)
[2024-12-02 21:22] LABS: Color, Urine Straw (Yellow); Glucose, Dipstick Normal (Normal); Ketone-Dipstick Negative (Negative); Leukocyte Esterase-Dipstick Negative /ul (Negative); Nitrite-Dipstick Negative (Negative); Occult Blood-Urine Negative /ul (Negative); Protein-Dipstick 15 mg/dl (Negative); Specific Gravity, Urine 1.005 (1.002-1.030); Urine Bilirubin Dipstick Negative (Negative); Urine Clarity Clear (Clear); Urine Urobilinogen Normal (Normal)
[2024-12-02 21:47] VITALS: BP 138/70; PULSE 72; RESP 15; O2SAT 95
[2024-12-02 23:00] VITALS: BP 146/84; PULSE 71; RESP 18; O2SAT 95
[2024-12-02 23:20] VITALS: BP 146/84; PULSE 74; RESP 18; TEMP 36.6; O2SAT 95
[2024-12-02] MEDS: Cephalexin 250 MG Capsule 500 MG PO (23:24)
== END 2024-12-02 23:28 | disposition home or self-care (01) ==
PROVIDERS: Emergency Provider Surgery; PCP Family Medicine; Referring Provider Surgery; Visit Provider Surgery
DX: R10.31 Right lower quadrant pain (principal); K64.9 Unspecified hemorrhoids; R19.5 Other fecal abnormalities; R19.09 Other intra-abdominal and pelvic swelling, mass and lump; I10 Essential (primary) hypertension; E78.5 Hyperlipidemia, unspecified; G47.30 Sleep apnea, unspecified; K21.9 Gastro-esophageal reflux disease without esophagitis; F17.220 Nicotine dependence, chewing tobacco, uncomplicated; Z79.899 Other long term (current) drug therapy; Z98.890 Other specified postprocedural states
CPT/HCPCS: 74177; 80048; 81001; 82274; 83605; 85025; 96361; 96374; 96375; 99284; Q9967; A4216; J2405

== ENCOUNTER 2025-07-17 17:24 | Emergency (ER) | payer BC, SELFPAY ==
[2025-07-17 17:24] VITALS: BP 126/72; PULSE 68; RESP 16; TEMP 37; O2SAT 99; BMI 30.5
[2025-07-17 18:13] LABS: Hematocrit 42.6 % (40-54); Hemoglobin 14.7 g/dL (13.0-16.5); Immature Granulocytes Count 0.020 X10^3/uL (0.0-0.0); Mean Corp Hgb Conc 34.5 g/dL (32-36); Mean Corpuscular Volume 89.7 fL (80-94); Mean Platelet Vol. 9.5 fl (6.2-12.0); NRBC Flagged by Analyzer 0 % (0-5); Platelet Count 195 K/mm3 (150-450); RBC Distribution Width CV 11.9 % (11.6-14.6); RBC Distribution Width SD 38.9 fl (35.1-43.9); Red Blood Count 4.75 M/mm3 (4.6-6.2); White Blood Count 6.7 K/mm3 (4.4-11.0)
[2025-07-17 18:39] LABS: AST(SGOT) 19 U/L (<=37); Alanine Aminotransfer ALT/SGPT 20 U/L (<=46); Albumin, Serum 4.4 g/dL (3.4-4.8); Alkaline Phosphatase 77 U/L (40-129); Anion Gap 9 (5-15); BUN 12 mg/dL (4-19); BUN/Creat Ratio 11.6 RATIO (10-20); Calcium,Total 9.8 mg/dL (7.6-11.0); Carbon Dioxide 28.2 mmol/L (21.0-32.0); Chloride 103 mmol/L (98-108); Estimated Creatinine Clearance 82.57 ml/min (50-250); Globulin 3.4 g/dL (2.2-4.2); Glucose 100 mg/dL (70-99); Lipase 29 U/L (13-75); Potassium 4.3 mmol/L (3.3-5.1)
--- NOTE | 2025-07-17 18:42 | CT_ITS ---
PROCEDURE: CT ABDOMEN/PELVIS W IV CONT ONLY 07/17/2025 REASON FOR EXAM: RIGHT LOWER QUADRANT PAIN, CONSTIPATION TECHNIQUE: Procedure Code: [id number] Modality: CT Procedure: ABDOMEN/PELVIS W IV CONT ONLY Coronal and Sagittal reconstruction series were provided. CONTRAST: Isovue-300 VOLUME: 94 mL One or more dose reduction techniques were used (e.g., Automated exposure control, adjustment of the mA and/or kV according to patient size, use of iterative reconstruction technique. RADIATION DOSE SUMMARY: DLP: 1111.04 mGycm COMPARISON: 12/02/2024 FINDINGS: Lung bases: Clear. Liver: Diffuse hepatic steatosis, otherwise unremarkable. Gallbladder: Contracted, unremarkable. Spleen: Unremarkable. Pancreas: Unremarkable Adrenals: Unremarkable Kidneys: Severely atrophic left kidney. No urolithiasis or hydronephrosis on either side. Several simple appearing right renal cysts. Bladder: Underdistended. Probable circumferential bladder wall hypertrophic thickening. Reproductive Organs: Mildly enlarged prostate with parenchymal calcifications. Bowel: No evidence of obstruction or active inflammatory process. The appendix appears normal in caliber without inflammatory changes, although there is diverticulosis of the appendix noted. Moderate distal colonic diverticulosis without evidence for active diverticulitis/colitis. Lymph nodes: No suspicious lymph node enlargement. Vasculature: Normal caliber abdominal aorta. Mild atherosclerotic disease. Peritoneum / Retroperitoneum: No ascites or free air. Bones: Mild multilevel degenerative changes of the spine. CT/Abdomen/Pelvis W IV Cont ONLY IMPRESSION: No bowel obstruction or active inflammatory process. Moderate diverticulosis o f the appendix and distal colon without evidence for active diverticulitis. Ancillary findings noted above. Reading Location: [id number]
--- NOTE | 2025-07-17 18:44 | EDS_ITS ---
HPI History of Present Illness Chief Complaint: Abd Pain Narrative Narrative: Chief complaint and HPI: 65-year-old male with past medical history of HTN, HLD, GERD presents for evaluation of intermittent nausea and right lower quadrant abdominal pain. Patient states for the past 3 weeks he has been having intermittent nausea. States the past several days he has been constipated. Followed up with his primary care physician today in which he was tender in the right lower quadrant and was sent to the emergency department. He denies any fever, chills, shortness of breath, chest pain, emesis, diarrhea, dysuria, penile or testicular pain. Review of systems: See HPI Medications: As listed on the chart Allergies: As listed on the chart PFSH: Per chart Vital signs: As listed on the chart. Reviewed. Physical exam: Gen: A&O x3, NAD Head: Normocephalic, atraumatic Eyes: No sclera icterus, conjunctiva clear ENT: Moist mucous membranes CV: RRR, no murmurs Resp: Lungs CTA BL, no w/r/c GI: Abd soft, non-distended, mildly tender to palpation in the right lower quadrant, no r/r : Uncircumcised penis. No penile tenderness or discharge. No penile or testicular swelling. Normal lie and position of the testicles. No testicular tenderness, masses, or skin changes. No rashes. Musc: Full ROM, no deformity Skin: Warm, dry Psych: Cooperative, appropriate mood and affect [facility] Medical History (Updated 07/17/25 @ 21:[address] Lexa Barnes, DO) Physical exam, pre-employment Left inguinal hernia Abdominal pain Sleep apnea GERD (gastroesophageal reflux disease) Essential (primary) hypertension HLD (hyperlipidemia) Home Medications ?Medication ?Instructions ?Recorded ?Last Taken ?Type pantoprazole 40 mg tablet,delayed 40 mg PO BID #60 tab s 05/30/19 12/12/20 07:30 Rx release amlodipine 10 mg tablet 10 mg PO DAILY 12/06/2011/28 07:30 History atorvastatin 20 mg tablet 20 mg PO QHS 12/06/20 Unknow n History cephalexin 500 mg capsule 500 mg PO Q6 #28 CAPSULES Unknown Rx Allergy/AdvReac Type Severity Reaction Status Date / Time No Known Allergies Allergy Verified 07/17/25 17:24 Family History Father Heart disease Hypertension High cholesterol Myocardial infarction Mother Heart disease High cholesterol Hypertension Seizures Sister Kidney disease Surgical History S/P left inguinal hernia repair Hx of colonoscopy Hx of shoulder surgery History of nerve impingement Hx of foot surgery History of left heart catheterization (05/30/19) Social History household members: spouse Smoking Status: Former smoker Smokeless tobacco user: chewing tobacco alcohol intake: current alcohol intake frequency: a few times a month substance use type: does not use caffeine: Yes what type of physical activity do you participate in: none frequency: does not exercise EXAM Physical Exam Const Vital Signs: 07/17/25 17:24 07/17/25 19:34 Temperature 98.6 F Temperature Source Oral Pulse Rate 68 60 Respiratory Rate 16 17 Blood Pressure 126/72 H 132/72 H Blood Pressure Mean 90 92 Pulse Ox 99 94 Oxygen Delivery Method Room Air Room Air MDM MDM MDM Narrative Medical decision making narrative: 65-year-old male with past medical history of HTN, HLD, GERD presents for evaluation of intermittent nausea and right lower quadrant abdominal pain. Patient states for the past 3 weeks he has been having intermittent nausea. States the past several days he has been constipated. Followed up with his primary care physician today in which he was tender in the right lower quadrant and was sent to the emergency department. On presentation, patient no acute distress. Vitals are stable. Differential diagnosis includes but is not limited to appendicitis, viral gastroenteritis, mass, colitis, UTI, IBS, constipation. Abdominal pain workup ordered including CT abdomen pelvis. Patient offered antinausea and pain medicine but declined at this time. CBC without leukocytosis or anemia. CMP unremarkable. Lipase unremarkable. UA negative for UTI. CBC without leukocytosis or anemia. Platelets unremarkable. CMP unremarkable. Lipase unremarkable. UA negative for UTI. CT abdomen pelvis shows no obstruction or inflammatory process. Moderate diverticulosis of the appendix and distal colon without diverticulitis. Severely atrophic left kidney. Simple appearing right renal cyst. Mildly enlarged prostate. At this point in time, no clear etiology to explain patient's symptoms. He was updated of all the results. Follow-up with primary care physician. Return back to ED symptoms change or worsen. Impression: 1. Right lower quadrant abdominal pain 2. Intermittent nausea Lab Data Labs: Laboratory Results - last 24 hr 07/17/25 07/17/25 18:00 18:55 WBC 6.7 RBC 4.75 Hgb 14.7 Hct 42.6 MCV 89.7 MCH 30.9 MCHC 34.5 RDW Std Deviation 38.9 RDW Coeff of Eddie 11.9 Plt Count 195 MPV 9.5 Immature Gran % (Auto) 0.300 Neut % (Auto) 58.8 Lymph % (Auto) 25.6 [place] % (Auto) 12.9 H Eos % (Auto) 1.8 Baso % (Auto) 0.6 Absolute Neuts (auto) 3.9 Absolute Lymphs (auto) 1.71 Nucleated RBC % 0 Sodium 141 Potassium 4.3 Chloride 103 Carbon Dioxide 28.2 Anion Gap 9 BUN 12 Creatinine 1.04 Estim Creat Clear Calc 82.57 Est GFR (MDRD) Non-Af 80 BUN/Creatinine Ratio 11.6 Glucose 100 H Calcium 9.8 Total Bilirubin 0.64 AST 19 ALT 20 Alkaline Phosphatase 77 Total Protein 7.9 Albumin 4.4 Globulin 3.4 Albumin/Globulin Ratio 1.3 Lipase 29 Urine Color Straw Urine Clarity Clear Urine pH 6.0 Ur Specific [place] 1.010 Urine Protein 30 H Urine Glucose (UA) Normal Urine Ketones Negative Urine Occult Blood Negative Urine Nitrite Negative Urine Bilirubin Negative Urine Urobilinogen Normal Ur Leukocyte Esterase Negative Urine RBC 0 SEEN Urine WBC 0-5 SEEN Ur Squamous Epith Cells 0 SEEN Urine Bacteria 0 SEEN Urine Mucus 0 SEEN Radiography Diagnostic Testing: Clinical Impression(s) from Imaging Studies Abdomen/Pelvis CT 07/17/25 18:42 IMPRESSION: No bowel obstruction or active inflammatory process. Moderate diverticulosis of the appendix and distal colon without evidence for active diverticulitis. Ancillary findings noted above. Reading Location: [facility] Discharge Plan Triage Chief Complaint: Abd Pain ED Provider: Lexa Barnes Dx/Rx/DC Orders Clinical Impression: Abdominal pain Instructions: ED Abdominal Pain Unkn Cause Male... Prescriptions: No Action atorvastatin 20 mg tablet 20 mg PO QHS Patient Comments: TAKE 1 TABLET BY MOUTH EVERYDAY AT BEDTIME FOR CHOLESTEROL amlodipine 10 mg tablet 10 mg PO DAILY Patient Comments: TAKE 1 TABLET BY MOUTH EVERY DAY pantoprazole 40 MG tablet 40 mg PO BID Qty: 60 0RF cephalexin 500 mg capsule 500 mg PO Q6 Qty: 28 0RF Primary Care Provider: Markos Brito Referrals: Markos Brito MD [Primary Care Provider, Medical] - 3-5 Days Activity Restrictions/Additional Instructions: No clear reason for your abdominal pain at this time. Facial laceration you do have diverticulosis. Mildly enlarged prostate. Severely atrophic left kidney. You need to follow-up with your primary care physician for these. Return back to ED symptoms change or worsen. Zofran as needed for nausea and vomiting. Print Language: Tristanian Disposition Disposition: Home, Self Care
[2025-07-17 19:08] LABS: Mucous, Urine 0 SEEN /hpf (<or=2+); Red Blood Cells-Urine 0 SEEN /hpf (0-5); Squamous Epithelial Cells - UA 0 SEEN /hpf (0-5)
[2025-07-17 19:19] LABS: Color, Urine Straw (Yellow); Glucose, Dipstick Normal (Normal); Ketone-Dipstick Negative (Negative); Leukocyte Esterase-Dipstick Negative /ul (Negative); Nitrite-Dipstick Negative (Negative); Occult Blood-Urine Negative /ul (Negative); Protein-Dipstick 30 mg/dl (Negative); Specific Gravity, Urine 1.010 (1.002-1.030); Urine Bilirubin Dipstick Negative (Negative)
[2025-07-17] MEDS: 0.9% Normal Saline (1000mL) 1,000 ML 999 ML IV (19:32)
[2025-07-17 19:34] VITALS: BP 132/72; PULSE 60; RESP 17; O2SAT 94
[2025-07-17 20:15] VITALS: BP 127/76; PULSE 58; RESP 17; O2SAT 94
== END 2025-07-17 22:00 | disposition home or self-care (01) ==
PROVIDERS: Emergency Provider Surgery; PCP Family Medicine; Visit Provider Surgery
DX: R10.31 Right lower quadrant pain (principal); R11.0 Nausea; I10 Essential (primary) hypertension; Z87.891 Personal history of nicotine dependence; E78.5 Hyperlipidemia, unspecified; K21.9 Gastro-esophageal reflux disease without esophagitis; Z79.899 Other long term (current) drug therapy
CPT/HCPCS: 74177; 80053; 81001; 83690; 85025; 96360; 96361; 99283; Q9967